=== PATIENT | female | born 1970 | race Caucasian/White ===

== ENCOUNTER 2016-08-21 13:20 | Emergency (ER) | payer OTHER ==
[2016-08-21] MEDS ORDERED: KETOROLAC 60 MG/2 ML VIAL IVP STA (14:23)
[2016-08-21] MEDS ORDERED: KETOROLAC 30 MG/ML VIAL ONE (14:37)
== END 2016-08-21 15:11 | disposition home or self-care (01) ==
DX: J06.9 Acute upper respiratory infection, unspecified (principal); B97.89 Other viral agents as the cause of diseases classified elsewhere; R07.89 Other chest pain; Z95.2 Presence of prosthetic heart valve; F17.200 Nicotine dependence, unspecified, uncomplicated

== ENCOUNTER 2016-12-16 11:26 | Emergency (ER) | payer OTHER ==
[2016-12-16] MEDS ORDERED: LIDOCAINE PATCH 5% TOP STA (12:06)
[2016-12-16] MEDS ORDERED: KETOROLAC 60 MG/2 ML VIAL IM STA (12:06)
[2016-12-16] MEDS ORDERED: CYCLOBENZAPRINE 10 MG TABLET PO STA (12:06)
--- NOTE | 2016-12-16 12:10 | ED Physician Documentation ---
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: Breast implants, Other Cardiovascular: Valve replacement HEENT: Tonsil/Adenoidectomy - Present Medications Home Medications: Ambulatory Orders Medication Instructions Recorded Confirmed Meloxicam [Mobic] 7.5 mg PO BID PRN #20 tablet 08/21/16 Cyclobenzaprine [Flexeril] 10 mg PO TID PRN #20 tablet 12/16/16 Lidocaine Patch 5% [Lidoderm Patch] 1 each TOP DAILY PRN #10 patch 12/16/16 - Allergies Allergies/Adverse Reactions: Allergies Allergy/AdvReac Type Severity Reaction Status Date / Time codeine Allergy Itching Verified 12/16/16 11:42 hydrocodone Allergy Unknown Verified 12/16/16 11:42 meperidine HCl * Allergy Unknown Verified 12/16/16 11:42 [From Demerol] methocarbamol Allergy Unknown Verified 12/16/16 11:42 oxycodone [Oxycodone] Allergy Itching Verified 12/16/16 11:42 propoxyphene napsylate * Allergy Itching Verified 12/16/16 11:42 [From Darvocet-N] anti nausea Allergy Unknown Uncoded 12/16/16 11:42 - Social History Does the pt smoke?: Yes Smoking Status: Current every day smoker Does the pt drink ETOH?: Yes Does the pt have substance abuse?: No - Immunizations Immunizations are current?: Yes - POLST Patient has POLST: No PD ED PE NORMAL - Vitals Vital signs reviewed: Yes - Cardiac Cardiac: RRR - Abdomen Abdomen: Soft, Non tender - Derm Derm: Normal color - Extremities Extremities: No deformity - Neuro Neuro: Alert and oriented X 3, No motor deficit, No sensory deficit, Other (hip flexion knee ext foot dorsi planta flexion and great toe ext 5/5 denies numbness or saddle anesthesia, no clonus, diff to elicit patellar DTR janak but pt states that is normal for her) Results - Vitals Vitals: Vital Signs - 24 hr 12/16/16 12/16/16 11:34 12:52 Temperature 36.5 C Heart Rate 71 76 Respiratory 14 Rate Blood Pressure 133/88 H 130/80 O2 Saturation 100 Oxygen O2 Source Room air Departure - Departure Disposition: Home, Self Care Clinical Impression: Back pain Qualifiers: Back pain location: low back pain Chronicity: acute Back pain laterality: bilateral Sciatica presence: without sciatica Qualified Code(s): M54.5 - Low back pain Condition: Good Instructions: ED Low Back Pain Injury Follow-Up: LANNY HERNANDEZ [Primary Care Provider] - Prescriptions: Cyclobenzaprine [Flexeril] 10 mg PO TID PRN #20 tablet PRN Reason: Spasms Lidocaine Patch 5% [Lidoderm Patch] 1 each TOP DAILY PRN #10 patch PRN Reason: Pain Comments: Continue your mobic or else can take advil for anti-inflammatory effect Also I have prescribed lidocaine patches and muscle relaxants and written a note for work Please have your PMD recheck your blood pressure - it was high today Forms: Activity restrictions Discharge Date/Time: 12/16/16 12:54
[2016-12-16] MEDS ORDERED: CYCLOBENZAPRINE 10 MG TABLET PO ONE (12:31)
[2016-12-16] MEDS ORDERED: KETOROLAC 60 MG/2 ML VIAL ONE (12:32)
[2016-12-16] MEDS ORDERED: LIDOCAINE PATCH 5% TOP ONE (12:32)
[2016-12-16 12:54] VITALS: BP 130/80
== END 2016-12-16 12:54 | disposition home or self-care (01) ==
LOC: ED 11:26
DX: M54.5 Low back pain (principal); R03.0 Elevated blood-pressure reading, without diagnosis of hypertension; F17.200 Nicotine dependence, unspecified, uncomplicated; Z95.2 Presence of prosthetic heart valve
CPT/HCPCS: 96372; 99283; A9270

== ENCOUNTER 2017-07-16 12:24 | Outpatient (CLI) | payer OTHER ==
--- NOTE | 2017-07-16 15:30 | MRI Report ---
EXAM: LEFT KNEE MRI WITHOUT CONTRAST EXAM DATE: 07/16/2017 01:24 PM. CLINICAL HISTORY: Prior lateral dislocation of the patella. Persistent pain and swelling. COMPARISON: Knee x-ray, 09/13/2007. TECHNIQUE: Multiplanar, multisequence T1-weighted and fluid-sensitive sequences of the knee without c ontrast. Other: None. FINDINGS: Bones: There is a small focus of marrow edema in the medial aspect of the medial femoral condyle. Sma ll medial compartment osteophytes.. Articular Cartilage: Moderate thinning of the hyaline cartilage of the medial compartment. Mild thinn ing of the lateral and patellofemoral compartment cartilage. Medial Meniscus: The medial meniscus is intact. Lateral Meniscus: The lateral meniscus is intact. Cruciate Ligaments: The anterior and posterior cruciate ligaments are intact. Collateral Ligaments: The medial and lateral collateral ligament appears slightly thickened, suggesti ng prior trauma. Tendons: The quadriceps, patellar, semimembranosus, and popliteus tendons are unremarkable. Musculature: No edema or fatty atrophy. Other: There is a moderate-sized joint effusion. There is thickening of the synovium in the suprapate llar pouch and in the medial and lateral recesses. No loose bodies. The medial and lateral retinacula are intact. The subcutaneous tissues and fat pads are unremarkable. IMPRESSION: 1. Mild medial compartment osteoarthritis. Minimal patellofemoral and lateral compartment cartilage e rosion. 2. Moderate-sized joint effusion with diffuse synovial thickening. The findings raise the possibility of a monoarticular presentation of an inflammatory arthropathy such as rheumatoid arthritis. 3. No evidence of patellar dislocation. 4. The menisci and ligaments appear unremarkable. [facility]CUL[facility]OLOG[facility] SECTION Referring Provider Line: [phone] SITE ID: [id number]
== END 2017-07-16 12:25 | disposition home or self-care (01) ==
LOC: DI 12:24
PROVIDERS: ATTEND Family Medicine
DX: M17.12 Unilateral primary osteoarthritis, left knee (principal); M25.462 Effusion, left knee

== ENCOUNTER 2017-07-28 08:27 | Emergency (ER) | payer OTHER ==
[2017-07-28 08:49] VITALS: BP 136/103
--- NOTE | 2017-07-28 09:44 | XRAY Report ---
EXAM: LEFT KNEE RADIOGRAPHY EXAM DATE: 07/28/2017 09:05 AM. CLINICAL HISTORY: Left knee injury. COMPARISON: None. TECHNIQUE: 3 views. FINDINGS: Bones: No fractures or bone lesions. Joints: Moderate joint effusion. Significant degenerative findings. Soft Tissues: Unremarkable. IMPRESSION: 1. No acute osseous abnormality. 2. Joint effusion. [facility] Referring Provider Line: [phone] SITE ID: [id number]
--- NOTE | 2017-07-28 11:06 | ED Physician Documentation ---
PD HPI LOWER EXT INJURY - Stated complaint Stated Complaint: KNEE PX - Chief complaint Chief Complaint: Ext Problem - History obtained from History obtained from: Patient - History of Present Illness PD HPI LOW EXT INJURY LOCATION: Left, Knee Type of injury: Twist Where injury occurred: Home Timing - onset: Today Timing - duration: Hours Timing - details: Abrupt onset, Still present Improved by: Rest, Immobilization Worsened by: Moving, Palpating Associated symptoms: Swelling Contributing factors: No: Anticoagulated Similar symptoms before: Diagnosis (patellar dislocation) Recently seen: Not recently seen - Additional information Additional information: 46-year-old female had a patellar dislocation about 3 months ago. She had been on some crutches she has had a joint effusion and she has been in to have a MRI done of the knee. She is continued to have problems with her knee the entire time. Today she twisted her knee wrong and has significant severe pain and swelling. She is not able to bear weight without severe pain. Review of Systems Constitutional: denies: Fever Eyes: denies: Decreased vision Ears: denies: Ear pain Nose: denies: Congestion Throat: denies: Sore throat Respiratory: denies: Cough GI: denies: Vomiting Skin: denies: Rash Musculoskeletal: reports: Extremity pain, Joint pain, Joint swelling, Pain with weight bearing. denies: Neck pain, Back pain Neurologic: denies: Generalized weakness, Focal weakness, Numbness PD PAST MEDICAL HISTORY - Past Medical History Past Medical History: Yes - Past Surgical History Past Surgical History: Yes Ortho: Other /[employer]: Breast implants, Other Cardiovascular: Valve replacement HEENT: Tonsil/Adenoidectomy - Present Medications Home Medications: Ambulatory Orders Medication Instructions Recorded Confirmed Meloxicam [Mobic] 7.5 mg PO BID PRN #20 tablet 08/21/16 Cyclobenzaprine [Flexeril] 10 mg PO TID PRN #20 tablet 12/16/16 Lidocaine Patch 5% [Lidoderm Patch] 1 each TOP DAILY PRN #10 patch 12/16/16 HYDROcod/ACETAM 5/325 [[place] 5/325] 1 - 2 ea PO Q6H PRN #15 tablet 07/28/17 - Allergies Allergies/Adverse Reactions: Allergies Allergy/AdvReac Type Severity Reaction Status Date / Time codeine Allergy Itching Verified 12/16/16 11:42 hydrocodone Allergy Unknown Verified 12/16/16 11:42 meperidine HCl * Allergy Unknown Verified 12/16/16 11:42 [From Demerol] methocarbamol Allergy Unknown Verified 12/16/16 11:42 oxycodone [Oxycodone] Allergy Itching Verified 12/16/16 11:42 propoxyphene napsylate * Allergy Itching Verified 12/16/16 11:42 [From Darvocet-N] anti nausea Allergy Unknown Uncoded 12/16/16 11:42 - Social History Does the pt smoke?: Yes Smoking Status: Current every day smoker Does the pt drink ETOH?: Yes Does the pt have substance abuse?: No - Immunizations Immunizations are current?: Yes - POLST Patient has POLST: No PD ED PE NORMAL - Vitals Vital signs reviewed: Yes (hypertensive) - General General: Alert and oriented X 3, Well developed/nourished, Other (appears to be in pain ) - HEENT HEENT: Atraumatic, PERRL, EOMI - Respiratory Respiratory: No respiratory distress - Derm Derm: Normal color, Warm and dry, No rash - Extremities Extremities: No deformity, No edema, Other (There is swelling and pain in the left knee with a palpable effusion. There is ligamentous laxity of the MCL compared to the right. distal n/v intact. 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 No acute osseous abnormality. 2. Joint effusion.), EMP read indepedently, See rad report Procedures - Splint (location) left knee Splint applied by: Tech Type of splint: Other (knee splint) Other: Patient tolerated well, No complications, Neurovascular intact, Good alignment PD MEDICAL DECISION MAKING - ED course Complexity details: reviewed results, re-evaluated patient, considered differential, d/w patient ED course: 46-year-old female with a left knee joint effusion has now sprained her knee and appears to have some laxity to the medial collateral ligament as well. She does have a joint effusion present there and this is not tapped today.She is placed into a knee immobilizer and given an injection of Toradol. She is able to take Vicodin with Benadryl. Departure - Departure Disposition: 01 Home, Self Care Clinical Impression: Left knee sprain Qualifiers: Encounter type: initial encounter Involved ligament of knee: medial collateral ligament Qualified Code(s): S83.412A - Sprain of medial collateral ligament of left knee, initial encounter Condition: Stable Instructions: ED Effusion Knee, ED Sprain Knee Follow-Up: [facility] [Provider Group] Prescriptions: HYDROcod/ACETAM 5/325 [[place] 5/325] 1 - 2 ea PO Q6H PRN #15 tablet PRN Reason: Pain Forms: Activity restrictions Discharge Date/Time: 07/28/17 12:08
[2017-07-28] MEDS ORDERED: KETOROLAC 60 MG/2 ML VIAL IM STA (11:20)
== END 2017-07-28 12:08 | disposition home or self-care (01) ==
LOC: ED 08:27
DX: S83.412A Sprain of medial collateral ligament of left knee, initial encounter (principal); X50.1XXA Overexertion from prolonged static or awkward postures, initial encounter; Y92.009 Unspecified place in unspecified non-institutional (private) residence as the place of occurrence of the external cause; F17.200 Nicotine dependence, unspecified, uncomplicated
CPT/HCPCS: 99283

== ENCOUNTER 2019-09-10 22:09 | Outpatient (CLI) | payer OTHER | END 2019-09-10 23:59 | disposition EMS.NT | LOC: EMS 22:09 | PROVIDERS: ATTEND Surgery | DX: R11.0 Nausea (principal); Z73.3 Stress, not elsewhere classified; R20.2 Paresthesia of skin; R63.0 Anorexia ==

== ENCOUNTER 2019-09-11 12:38 | Outpatient (CLI) | payer OTHER | END 2019-09-11 12:39 | disposition critical access hospital (66) | LOC: EMS 12:38 | PROVIDERS: ATTEND Surgery | DX: R11.2 Nausea with vomiting, unspecified (principal); R42 Dizziness and giddiness; R68.2 Dry mouth, unspecified | CPT/HCPCS: A0425; A0427 ==

== ENCOUNTER 2019-09-11 12:59 | Emergency (ER) | payer OTHER ==
--- NOTE | 2019-09-11 13:13 | ED Physician Documentation ---
History of Present Illness - Stated complaint Stated Complaint: DIZZY/AGITATED - History obtained from History obtained from: Patient, EMS - History of Present Illness Timing: Yesterday - Additonal information Additional information: 48-year-old female reports that she began using methamphetamine and crack on Wednesday afternoon and she remembers taking a last dose of this yesterday at about 1 PM and she felt at that time that there was something seriously wrong and she has not taken any since. She is here today with a chief complaint of vomiting and vomiting blood having dry heaves having anxiety and numbness. She indicates that she has never done methamphetamine previously and she is "scared" Review of Systems Constitutional: reports: Fatigue. denies: Fever, Chills, Myalgias Eyes: denies: Decreased vision Ears: denies: Ear pain Nose: denies: Rhinorrhea / runny nose, Congestion Throat: denies: Sore throat Cardiac: reports: Palpitations. denies: Chest pain / pressure Respiratory: reports: Dyspnea. denies: Cough GI: reports: Abdominal Pain, Nausea, Vomiting, Hematemesis. denies: Constipation, Diarrhea : denies: Dysuria, Frequency Skin: denies: Rash Musculoskeletal: denies: Neck pain, Back pain, Extremity pain Neurologic: reports: Numbness. 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 Cardiovascular: Valve replacement HEENT: Tonsil/Adenoidectomy - Present Medications Home Medications: Ambulatory Orders Medication Instructions Recorded Confirmed Meloxicam [Mobic] 7.5 mg PO BID PRN #20 tablet 08/21/16 Cyclobenzaprine [Flexeril] 10 mg PO TID PRN #20 tablet 12/16/16 Lidocaine Patch 5% [Lidoderm Patch] 1 each TOP DAILY PRN #10 patch 12/16/16 HYDROcod/ACETAM 5/325 [[place] 5/325] 1 - 2 ea PO Q6H PRN #15 tablet 07/28/17 - Allergies Allergies/Adverse Reactions: Allergies Allergy/AdvReac Type Severity Reaction Status Date / Time codeine Allergy Itching Verified 09/11/19 13:07 hydrocodone Allergy Unknown Verified 09/11/19 13:07 meperidine HCl * Allergy Unknown Verified 09/11/19 13:07 [From Demerol] methocarbamol Allergy Unknown Verified 09/11/19 13:07 oxycodone [Oxycodone] Allergy Itching Verified 09/11/19 13:07 propoxyphene napsylate * Allergy Itching Verified 09/11/19 13:07 [From Darvocet-N] anti nausea Allergy Unknown Uncoded 09/11/19 13:07 - Social History Does the pt smoke?: Yes Smoking Status: Current every day smoker Does the pt drink ETOH?: Yes Does the pt have substance abuse?: No - Immunizations Immunizations are current?: Yes - POLST Patient has POLST: No PD ED PE NORMAL - Vitals Vital signs reviewed: Yes - General General: Alert and oriented X 3, Well developed/nourished, Other (Wide-eyed anxious appearing female who is a bit tachypneic at rest) - HEENT HEENT: Atraumatic, PERRL, EOMI - Neck Neck: Supple, no meningeal sign, No bony TTP - Cardiac Cardiac: No murmur, Other (Tachycardic and regular at 120) - Respiratory Respiratory: Clear bilaterally, Other (Tachypneic at rest) - Abdomen Abdomen: Non tender - Back Back: No CVA TTP, No spinal TTP - Derm Derm: Normal color, Warm and dry, No rash - Extremities Extremities: No deformity, No edema, No calf tenderness / cord - Neuro Neuro: Alert and oriented X 3, research animal attendant 2-12 intact, No motor deficit, No sensory deficit, Normal speech Eye Opening: Spontaneous Motor: Obeys Commands Verbal: Oriented GCS Score: 15 - Psych Psych: Other (The patient is anxious but with a full range affect.) Results - Vitals Vitals: Vital Signs - 24 hr 09/11/19 13:07 Temperature 37.2 C Heart Rate 120 H Respiratory 24 Rate Blood Pressure 169/101 H O2 Saturation 100 Oxygen O2 Source Room air - EKG (time done) 1315 Rate: Rate (enter#) (106) Rhythm: Sinus tachycardia Intervals: RBBB (incomplete) Compare to prior EKG: Changed from prior EKG (SPT 08-21-2016 rate has increased) Computer interpretation: Agree with computer - Labs Labs: Laboratory Tests 09/11/19 09/11/19 09/11/19 13:25 13:25 14:06 WBC 8.3 RBC 4.56 Hgb 14.5 Hct 42.6 MCV 93.4 MCH 31.8 H MCHC 34.0 RDW 13.7 Plt Count 211 MPV 10.0 Neut # (Auto) 6.2 Lymph # (Auto) 1.4 L Mchenry # (Auto) 0.6 Eos # (Auto) 0.0 Baso # (Auto) 0.0 Absolute Nucleated RBC 0.00 Nucleated RBC % 0.0 Sodium 136 Potassium 3.9 Chloride 102 Carbon Dioxide 24 Anion Gap 10.0 BUN 9 Creatinine 0.7 Estimated GFR (MDRD) 89 Glucose 103 H Calcium 8.9 Total Bilirubin 0.8 AST 31 ALT 23 Alkaline Phosphatase 92 Total Protein 7.5 Albumin 4.2 Globulin 3.3 Albumin/Globulin Ratio 1.3 Lipase 27 Urine Color Urine Clarity Urine pH Ur Specific [place] Urine Protein Urine Glucose (UA) Urine Ketones Urine Occult Blood Urine Nitrite Urine Bilirubin Urine Urobilinogen Ur Leukocyte Esterase Ur Microscopic Review Urine Culture Comments Urine HCG, Qual Urine Opiates Screen NEGATIVE Ur Oxycodone Screen NEGATIVE Urine Methadone Screen NEGATIVE Ur Propoxyphene Screen NEGATIVE Ur Barbiturates Screen NEGATIVE Ur Tricyclics Screen NEGATIVE Ur Phencyclidine Scrn NEGATIVE Ur Amphetamine Screen POSITIVE H U Methamphetamines Scrn POSITIVE H U Benzodiazepines Scrn NEGATIVE Urine Cocaine Screen NEGATIVE U Cannabinoids Screen POSITIVE H Ethyl Alcohol < 5.0 09/11/19 14:06 WBC RBC Hgb Hct MCV MCH MCHC RDW Plt Count MPV Neut # (Auto) Lymph # (Auto) Mchenry # (Auto) Eos # (Auto) Baso # (Auto) Absolute Nucleated RBC Nucleated RBC % Sodium Potassium Chloride Carbon Dioxide Anion Gap BUN Creatinine Estimated GFR (MDRD) Glucose Calcium Total Bilirubin AST ALT Alkaline Phosphatase Total Protein Albumin Globulin Albumin/Globulin Ratio Lipase Urine Color YELLOW Urine Clarity CLEAR Urine pH 6.0 Ur Specific [place] 1.010 Urine Protein NEGATIVE Urine Glucose (UA) NEGATIVE Urine Ketones 40 H Urine Occult Blood NEGATIVE Urine Nitrite NEGATIVE Urine Bilirubin NEGATIVE Urine Urobilinogen 0.2 (NORMAL) Ur Leukocyte Esterase NEGATIVE Ur Microscopic Review NOT INDICATED Urine Culture Comments NOT INDICATED Urine HCG, Qual NEGATIVE Urine Opiates Screen Ur Oxycodone Screen Urine Methadone Screen Ur Propoxyphene Screen Ur Barbiturates Screen Ur Tricyclics Screen Ur Phencyclidine Scrn Ur Amphetamine Screen U Methamphetamines Scrn U Benzodiazepines Scrn Urine Cocaine Screen U Cannabinoids Screen Ethyl Alcohol Procedures - IVC sono (time) 1340 Bedside IVC sono: IVC measures (cm) (1.12), Dehydration (est 1+ liter deficit) PD MEDICAL DECISION MAKING - ED course Complexity details: reviewed old records, reviewed results, re-evaluated patient, considered differential, d/w patient ED course: 48-year-old female who is feeling quite anxious after consuming methamphetamine and cocaine. She is administered Ativan intravenously as well as saline and zofran. She gives further history that she has not taken her Lexapro for the past 4 days. Her level of anxiety 24 hours after meth and cocaine seems long for this and I considered lexapro withdrawal as a likely reason for her symptoms and we have given her 20mg of lexapro. After administration of the Lexapro the patient is able to fall asleep. She wakes up feeling much improved. She has recollection that she did not take any cocaine that this was methamphetamine. Departure - Departure Disposition: 01 Home, Self Care Clinical Impression: Dehydration Antidepressant discontinuation syndrome Qualifiers: Encounter type: initial encounter Qualified Code(s): T43.205A - Adverse effect of unspecified antidepressants, initial encounter Condition: Stable Instructions: ED Dehydration, Escitalopram tablets, SSRIs Follow-Up: Alonso Love ARNP [Primary Care Provider] - Comments: Resume your Lexapro at the previously prescribed dose. The symptoms you had today are likely related to not having her Lexapro for 4 days. The symptoms can be pretty profound and concerning. If you ever need to get off of this medication plan to have a slow taper.
[2019-09-11] MEDS: LORazepam 2 MG/ML VIAL IVP STA (13:29)
[2019-09-11] MEDS: ONDANSETRON 4 MG/2 ML VIAL IVP STA (13:29)
[2019-09-11] MEDS: SODIUM CHLORIDE 0.9% 1,000 ML IV ONE (13:29)
[2019-09-11 13:37] LABS: BASOPHILS % (AUTO) 0.5 %; EOSINOPHILS % (AUTO) 0.5 %; HGB - HEMOGLOBIN 14.5 g/dL (12.0-16.0); LYMPHOCYTES # (AUTO) 1.4 10^3/uL (1.5-3.5); LYMPHOCYTES % (AUTO) 17.3 %; MEAN CORPUSCULAR HEMOGLOBIN 31.8 pg (27.0-31.0); MEAN CORPUSCULAR VOLUME 93.4 fL (81.0-99.0); MONOCYTES # (AUTO) 0.6 10^3/uL (0.0-1.0); MONOCYTES % (AUTO) 7.5 %; NEUTROPHILS # (AUTO) 6.2 10^3/uL (1.5-6.6); NEUTROPHILS % (AUTO) 73.8 %; PLT - PLATELET COUNT 211 10^3/uL (130-450); RED BLOOD COUNT 4.56 10^6/uL (4.20-5.40); RED CELL DISTRIBUTION WIDTH 13.7 % (12.0-15.0); WHITE BLOOD COUNT 8.3 x10^3/uL (4.8-10.8)
[2019-09-11 13:51] LABS: ALBUMIN 4.2 g/dL (3.2-5.5); ALBUMIN/GLOBULIN RATIO 1.3 (1.0-2.2); ALKALINE PHOSPHATASE 92 IU/L (42-121); ALT ALANINE AMINOTRANSFERASE 23 IU/L (10-60); AST ASPARTATE AMINOTRANSFERASE 31 IU/L (10-42); BILIRUBIN,TOTAL 0.8 mg/dL (0.2-1.0); BUN - BLOOD UREA NITROGEN 9 mg/dL (6-20); CALCIUM 8.9 mg/dL (8.5-10.3); CARBON DIOXIDE - CO2 24 mmol/L (21-32); CHLORIDE 102 mmol/L (101-111); CREATININE 0.7 mg/dL (0.4-1.0); GLUCOSE 103 mg/dL (70-100); LIPASE 27 U/L (22-51); SODIUM 136 mmol/L (135-145); TOTAL PROTEIN 7.5 g/dL (6.7-8.2)
[2019-09-11 14:11] LABS: MUDS CUTOFF CONCENTRATIONS CUTOFF CONC BELOW:
[2019-09-11 14:17] LABS: BILIRUBIN,URINE NEGATIVE (NEGATIVE); CLARITY,URINE CLEAR (CLEAR); GLUCOSE, URINE (UA) NEGATIVE (NEGATIVE); KETONES,URINE (UA) 40 mg/dL (NEGATIVE); LEUKOCYTE ESTERASE, URINE NEGATIVE (NEGATIVE); NITRITE,URINE NEGATIVE (NEGATIVE); OCCULT BLOOD,URINE NEGATIVE (NEGATIVE); PROTEIN,URINE NEGATIVE (NEGATIVE); UROBILINOGEN,URINE 0.2 (NORMAL) E.U./dL (NORMAL)
[2019-09-11 14:18] LABS: HCG UR QUAL NEGATIVE
[2019-09-11 14:28] LABS: AMPHETAMINE SCREEN,URINE POSITIVE (NEGATIVE); BENZODIAZEPINES SCREEN, URINE NEGATIVE (NEGATIVE); COCAINE SCREEN URINE NEGATIVE (NEGATIVE); METHADONE SCREEN, URINE NEGATIVE (NEGATIVE); METHAMPHETAMINES SCREEN, URINE POSITIVE (NEGATIVE); OPIATE SCREEN, URINE NEGATIVE (NEGATIVE); OXYCODONE SCREEN, URINE NEGATIVE (NEGATIVE); PROPOXYPHENE SCREEN, URINE NEGATIVE (NEGATIVE); TRICYCLIC ANTIDEPRESSANT,URINE NEGATIVE (NEGATIVE)
[2019-09-11] MEDS: ESCITALOPRAM 10 MG TABLET PO STA (14:33)
[2019-09-11] MEDS: PROMETHAZINE INJ 25 MG in SODIUM CHLORIDE 0.9% 50 ML IV STA (14:52)
[2019-09-11 15:44] VITALS: BP 143/103
== END 2019-09-11 16:07 | disposition home or self-care (01) ==
LOC: EDUNIT# → ED 12:59
DX: F41.9 Anxiety disorder, unspecified (principal); T43.205A Adverse effect of unspecified antidepressants, initial encounter; E86.0 Dehydration; F17.200 Nicotine dependence, unspecified, uncomplicated
CPT/HCPCS: 36415; 80053; 80306; 80320; 81001; 81003; 81025; 83690; 85025; 87086; 93005; 96365; 96375; 99284

== ENCOUNTER 2020-01-08 12:35 | Emergency (ER) | payer OTHER ==
[2020-01-08] MEDS ORDERED: LIDOCAINE 1% 2 ML VIAL MC ONE (13:06)
[2020-01-08] MEDS ORDERED: cefTRIAXone 250 MG VIAL IM STA (13:06)
[2020-01-08] MEDS ORDERED: AZITHROMYCIN 250 MG TABLET PO STA (13:06)
[2020-01-08] MEDS ORDERED: metroNIDAZOLE 250 MG TABLET PO STA (13:06)
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
[2020-01-08 14:05] VITALS: BP 185/132
[2020-01-08 14:35] LABS: GLUCOSE, URINE (UA) NEGATIVE (NEGATIVE); KETONES,URINE (UA) 15 mg/dL (NEGATIVE); LEUKOCYTE ESTERASE, URINE NEGATIVE (NEGATIVE); NITRITE,URINE NEGATIVE (NEGATIVE); OCCULT BLOOD,URINE NEGATIVE (NEGATIVE); PH,URINE 5.5 PH (5.0-7.5); PROTEIN,URINE NEGATIVE (NEGATIVE); UROBILINOGEN,URINE 0.2 (NORMAL) E.U./dL (NORMAL)
[2020-01-08 14:38] LABS: HCG UR QUAL NEGATIVE
[2020-01-08 14:42] LABS: BILIRUBIN,URINE NEGATIVE (NEGATIVE); ICTOTEST,URINE NEGATIVE
[2020-01-08 14:43] LABS: CLARITY,URINE CLEAR (CLEAR)
[2020-01-08] MEDS ORDERED: ULIPRISTAL ACETATE 30 MG TABLET PO STA (14:47)
[2020-01-08 15:11] LABS: MUDS CUTOFF CONCENTRATIONS CUTOFF CONC BELOW:
[2020-01-08] MEDS ORDERED: ONDANSETRON ODT 4 MG TABLET TL STA (15:30)
[2020-01-08 15:32] LABS: COCAINE SCREEN URINE NEGATIVE (NEGATIVE)
[2020-01-08 15:33] LABS: AMPHETAMINE SCREEN,URINE NEGATIVE (NEGATIVE); BENZODIAZEPINES SCREEN, URINE NEGATIVE (NEGATIVE); METHADONE SCREEN, URINE NEGATIVE (NEGATIVE); METHAMPHETAMINES SCREEN, URINE NEGATIVE (NEGATIVE); OPIATE SCREEN, URINE NEGATIVE (NEGATIVE); OXYCODONE SCREEN, URINE NEGATIVE (NEGATIVE); PROPOXYPHENE SCREEN, URINE NEGATIVE (NEGATIVE); TRICYCLIC ANTIDEPRESSANT,URINE NEGATIVE (NEGATIVE)
[2020-01-08 22:49] LABS: TRICHOMONAS VAGINALIS DNA NEGATIVE (NEGATIVE)
[2020-01-09 10:45] LABS: HIV AG/AB 4TH GEN NON-REACTIVE (NON-REACTIVE)
[2020-01-09 15:27] LABS: HEPATITIS C ANTIBODY NON-REACTIVE (NON-REACTIVE)
== END 2020-01-08 16:48 | disposition home or self-care (01) ==
LOC: ED 12:35
DX: T76.21XA Adult sexual abuse, suspected, initial encounter (principal); I10 Essential (primary) hypertension; F17.200 Nicotine dependence, unspecified, uncomplicated
CPT/HCPCS: 0133C; 36415; 80306; 81003; 81025; 86317; 86803; 87389; 87491; 87591; 87661; 96372; A9270; Q0162; 81001; 87086

== ENCOUNTER 2020-06-30 15:41 | Emergency (ER) | payer OTHER ==
--- NOTE | 2020-06-30 15:59 | ED Physician Documentation ---
PD HPI URI - Stated complaint Stated Complaint: CP,SOA,ARMS TINGLE - Chief complaint Chief Complaint: Cardiac - History obtained from History obtained from: Patient - History of Present Illness Timing - onset: How many days ago (3-4) Timing duration: Days (3-4) Timing details: Gradual onset, Still present Associated symptoms: Nasal congestion, Sinus pain (left frontal/behind eye area locally.), Productive cough Contributing factors: COPD / asthma. No: Sick contact, Travel, Immunocompromised Improves by: MDI/nebulizer (albuterol MDI without spacer at home.) Worsened by: Activity Similar symptoms before: Diagnosis (prior URIS with exac asthma, and has had sinusitis in the past as well.) Recently seen: Not recently seen Review of Systems Constitutional: denies: Fever, Chills Nose: reports: Congestion, Sinus pressure / pain (left sided). denies: Rhinorrhea / runny nose Throat: denies: Sore throat Cardiac: reports: Chest pain / pressure (sternal area with coughing and breathing.) Respiratory: reports: Dyspnea, Cough, Wheezing. denies: Hemoptysis GI: reports: Nausea. 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 : None HEENT: None Psych: Depression, Anxiety Musculoskeletal: None Derm: None - Past Surgical History Past Surgical History: Yes Ortho: Other /ACCOUNT DEVELOPER: Breast implants, Other Cardiovascular: Valve replacement HEENT: Tonsil/Adenoidectomy - Present Medications Home Medications: Ambulatory Orders Medication Instructions Recorded Confirmed Cyclobenzaprine [Flexeril] 10 mg PO TID PRN #20 tablet 12/16/16 06/30/20 Lidocaine Patch 5% [Lidoderm Patch] 1 each TOP DAILY PRN #10 patch 12/16/16 06/30/20 Escitalopram Oxalate [Lexapro] 20 mg PO DAILY 01/08/20 06/30/20 QUEtiapine [SEROquel] 25 mg ORAL DAILY PM 01/08/20 06/30/20 Albuterol 2.5 mg INH Q4H PRN #30 neb 06/30/20 Albuterol Sulfate [Proair Hfa 1 - 2 puffs INH Q4H PRN #1 inhaler 06/30/20 Inhaler] Benzonatate [Tessalon] 100 mg PO TID PRN #20 cap 06/30/20 Doxycycline Monohydrate 150 mg PO BID #14 cap 06/30/20 Nebulizer Accessories [Wing Tip 1 each MC QID #1 each 06/30/20 Tubing] Nebulizer [Truneb Nebulizer] 1 each MC QID #1 each 06/30/20 clonazePAM [Clonazepam] 0.5 mg PO DAILY PRN 06/30/20 06/30/20 dexAMETHasone [Decadron] 4 mg PO DAILY #7 tab 06/30/20 - Allergies Allergies/Adverse Reactions: Allergies Allergy/AdvReac Type Severity Reaction Status Date / Time codeine Allergy Itching Verified 06/30/20 15:44 hydrocodone Allergy Unknown Verified 06/30/20 15:44 meperidine HCl * Allergy Unknown Verified 06/30/20 15:44 [From Demerol] methocarbamol Allergy Unknown Verified 06/30/20 15:44 oxycodone [Oxycodone] Allergy Itching Verified 06/30/20 15:44 propoxyphene napsylate * Allergy Itching Verified 06/30/20 15:44 [From Darvocet-N] anti nausea Allergy Unknown Uncoded 01/08/20 12:49 - Social History Does the pt smoke?: Yes Smoking Status: Current every day smoker Does the pt drink ETOH?: Yes Does the pt have substance abuse?: No - Immunizations Immunizations are current?: Yes - POLST Patient has POLST: No PD ED PE NORMAL - Vitals Vital signs reviewed: Yes - General General: Alert and oriented X 3, Well developed/nourished - HEENT HEENT: PERRL (no discharge), Ears normal, Pharynx benign, Other (some tenderness left frontal area sinus. ) - Neck Neck: Supple, no meningeal sign, No adenopathy - Cardiac Cardiac: RRR, No murmur - Respiratory Respiratory: No: Clear bilaterally (no coarse sounds but has diffuse exp wheezing. ) - Abdomen Abdomen: Soft, Non tender - Derm Derm: Normal color, Warm and dry - Extremities Extremities: No edema, No calf tenderness / cord - Neuro Neuro: Alert and oriented X 3, No motor deficit, Normal speech Results - Vitals Vitals: Vital Signs - 24 hr 06/30/20 06/30/20 06/30/20 15:44 16:05 16:38 Temperature 37.2 C Heart Rate 78 84 73 Respiratory 20 18 15 Rate Blood Pressure 156/118 H 141/102 H O2 Saturation 100 99 06/30/20 06/30/20 16:39 18:00 Temperature Heart Rate 74 80 Respiratory 15 18 Rate Blood Pressure 163/101 H 165/96 H O2 Saturation 98 96 Oxygen O2 Source Room air - EKG (time done) 15:47 Rate: Rate (enter#) (78) Rhythm: NSR [place]: Normal Intervals: Normal PA QRS: Normal Ischemia: Normal ST segments. No: ST elevation c/w ischemia, ST depression - Labs Labs: Laboratory Tests 06/30/20 06/30/20 06/30/20 15:55 15:55 15:55 WBC 7.1 RBC 4.90 Hgb 15.5 Hct 46.3 MCV 94.5 MCH 31.6 H MCHC 33.5 RDW 12.3 Plt Count 230 MPV 10.0 Neut # (Auto) 4.0 Lymph # (Auto) 2.4 [place] # (Auto) 0.4 Eos # (Auto) 0.2 Baso # (Auto) 0.1 Absolute Nucleated RBC 0.00 Nucleated RBC % 0.0 Sodium 137 Potassium 3.7 Chloride 101 Carbon Dioxide 23 Anion Gap 13.0 BUN 17 Creatinine 0.8 Estimated GFR (MDRD) 76 L Glucose 101 H Calcium 9.8 Total Bilirubin 0.5 AST 23 ALT 24 Alkaline Phosphatase 92 Troponin I High Sens 2.8 Total Protein 7.8 Albumin 4.7 Globulin 3.1 Albumin/Globulin Ratio 1.5 Lipase 32 - Rads (name of study) chest xray Radiology: Prelim report reviewed (no infiltrates), See rad report PD MEDICAL DECISION MAKING - ED course Complexity details: reviewed results, considered differential (feeling much better with neb and with toradol. SHe declines opioid pain meds. DOes not sound cardiac, more pain with cough and breathing. will eval for pneumonia with CXR.), d/w patient Departure - Departure Disposition: 01 Home, Self Care Clinical Impression: Bronchitis Acute sinusitis Qualifiers: Sinusitis location: sphenoidal Recurrence: non-recurrent Qualified Code(s): J01 .30 - Acute sphenoidal sinusitis, unspecified Upper respiratory infection Qualifiers: URI type: unspecified URI Qualified Code(s): J06.9 - Acute upper respiratory infection, unspecified Exacerbation of asthma Qualifiers: Asthma severity: mild Asthma persistence: intermittent Qualified Code(s): J45.21 - Mild intermittent asthma with (acute) exacerbation Condition: Stable Record reviewed to determine appropriate education?: Yes Instructions: ED Bronchitis Asthmatic, ED Sinusitis Abx Tx Prescriptions: Albuterol 2.5 mg INH Q4H PRN #30 neb PRN Reason: Wheezing dexAMETHasone [Decadron] 4 mg PO DAILY #7 tab Doxycycline Monohydrate 150 mg PO BID #14 cap Albuterol Sulfate [Proair Hfa Inhaler] 1 - 2 puffs INH Q4H PRN #1 inhaler PRN Reason: Shortness Of Air/Wheezing Benzonatate [Tessalon] 100 mg PO TID PRN #20 cap PRN Reason: Cough Nebulizer [Truneb Nebulizer] 1 each MC QID #1 each Nebulizer Accessories [Wing Tip Tubing] 1 each MC QID #1 each Comments: Use your albuterol inhaler 3 to 4 puffs with the spacer or the nebulizer if you are able to get it 4 times a day regularly for the next several days to a week and extra times if needed for wheezing. After that resume as needed basis. Use Decadron steroid for inflammation of the airways to improve breathing and reduce cough. Add Tessalon if needed for cough. Doxycycline antibiotic twice daily for a week. Tylenol if needed for pains. Continue your other usual medicines. Recheck if not improving well over the next several days and resolved by 5 to 7 days. Your Covid test should result in the next couple of days and the results should be available through the patient portal for results. We do call positive results. Discharge Date/Time: 06/30/20 18:04
[2020-06-30 16:02] LABS: BASOPHILS # (AUTO) 0.1 10^3/uL (0.0-0.1); BASOPHILS % (AUTO) 0.8 %; EOSINOPHILS # (AUTO) 0.2 10^3/uL (0.0-0.7); EOSINOPHILS % (AUTO) 2.5 %; HGB - HEMOGLOBIN 15.5 g/dL (12.0-16.0); LYMPHOCYTES # (AUTO) 2.4 10^3/uL (1.5-3.5); LYMPHOCYTES % (AUTO) 34.2 %; MEAN CORPUSCULAR HEMOGLOBIN 31.6 pg (27.0-31.0); MEAN CORPUSCULAR HGB CONC 33.5 g/dL (32.0-36.0); MEAN CORPUSCULAR VOLUME 94.5 fL (81.0-99.0); MONOCYTES # (AUTO) 0.4 10^3/uL (0.0-1.0); MONOCYTES % (AUTO) 6.2 %; NEUTROPHILS % (AUTO) 55.9 %; PLT - PLATELET COUNT 230 10^3/uL (130-450); RED CELL DISTRIBUTION WIDTH 12.3 % (12.0-15.0); WHITE BLOOD COUNT 7.1 x10^3/uL (4.8-10.8)
--- NOTE | 2020-06-30 16:16 | XRAY Report ---
PROCEDURE: Chest 1 View X-Ray INDICATIONS: Chest Pain TECHNIQUE: One view of the chest was acquired. COMPARISON: 08/31/2016 FINDINGS: Surgical changes and devices: None. Lungs and pleura: No pleural effusions or pneumothorax. Lungs are clear. Mediastinum: Mediastinal contours appear normal. Heart size is normal. Bones and chest wall: No suspicious bony lesions. Mild degenerative changes are seen. Overlying sof t tissues appear unremarkable. IMPRESSION: Portable chest within normal limits for age. Reviewed by: Travis Watts MD on 06/30/2020 3:15 PM [place] Approved by: Travis Watts MD on 06/30/2020 3:15 PM [facility] Station ID: [id number]
[2020-06-30] MEDS ORDERED: ALBUTEROL 1 PUFF INH STA (16:20)
[2020-06-30] MEDS ORDERED: BENZONATATE 100 MG CAPSULE PO STA (16:23)
[2020-06-30] MEDS ORDERED: DEXAMETHASONE 10 MG/ML VIAL IVP STA (16:23)
[2020-06-30] MEDS ORDERED: KETOROLAC 30 MG/ML VIAL IVP STA (16:23)
[2020-06-30 16:24] LABS: ALBUMIN 4.7 g/dL (3.2-5.5); ALBUMIN/GLOBULIN RATIO 1.5 (1.0-2.2); BILIRUBIN,TOTAL 0.5 mg/dL (0.2-1.0); CALCIUM 9.8 mg/dL (8.5-10.3); CREATININE 0.8 mg/dL (0.4-1.0); TOTAL PROTEIN 7.8 g/dL (6.7-8.2)
[2020-06-30] MEDS ORDERED: DOXYCYCLINE 100 MG TABLET PO STA (17:47)
[2020-06-30 18:04] VITALS: BP 165/96
== END 2020-06-30 18:04 | disposition home or self-care (01) ==
LOC: ED 15:41
DX: J40 Bronchitis, not specified as acute or chronic (principal); J01.30 Acute sphenoidal sinusitis, unspecified; J06.9 Acute upper respiratory infection, unspecified; J45.21 Mild intermittent asthma with (acute) exacerbation; F17.200 Nicotine dependence, unspecified, uncomplicated; Z20.822 Contact with and (suspected) exposure to COVID-19
CPT/HCPCS: 36415; 71045; 80053; 83690; 84484; 85025; 87635; 93005; 94640; 96374; 96375; 99283; 99284; A9270

== ENCOUNTER 2020-10-18 15:44 | Emergency (ER) | payer OTHER ==
--- NOTE | 2020-10-18 16:46 | XRAY Report ---
PROCEDURE: Wrist 4 View LT INDICATIONS: Trauma TECHNIQUE: 4 views of the wrist were acquired. COMPARISON: None FINDINGS: Bones: No fractures or dislocations. No suspicious bony lesions. Scaphoid view: Scaphoid is intact. Soft tissues: No suspicious soft tissue calcifications. IMPRESSION: No fracture. No osseous lesion. If there are persistent symptoms or continued clinical concern for pa thology, then repeat plain film radiographs (7-10 days) or advanced imaging (CT, MR, bone scan) shoul d be considered for further evaluation. Reviewed by: Rashida Kim MD, PhD on 10/18/2020 4:45 PM PDT Approved by: Rashida Kim MD, PhD on 10/18/2020 4:45 PM PDT Station ID: [id number]
--- OUTSIDE RECORDS SUMMARY | 2020-10-18 16:47 | EXTERNAL MEDICAL SUMMARY RPT | Continuity of Care Document ---
:1970 Demographics Phone Unavailable Preferred Language Unknown Marital Status Unknown Mosque Affiliation Unknown Race Unknown Ethnic Group Unknown Author Organization [facility] Address [address] [place] [address] Phone Allergies Encounters Medications Problems Results
--- NOTE | 2020-10-18 17:01 | ED Physician Documentation ---
PD HPI UPPER EXT INJURY - Stated complaint Stated Complaint: LT ARM INJ - Chief complaint Chief Complaint: Ext Problem - History obtained from History obtained from: Patient - History of Present Illness Location: Left (Last night she slipped and her left wrist was between couch cushions and it got twisted and she heard a pop. No other injuries. 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 : None HEENT: None Psych: Anxiety, Panic attacks, Post traumatic stress disorder Musculoskeletal: None Derm: None - Past Surgical History Past Surgical History: Yes Ortho: Other /TREATING AND PUMPING SUPERVISOR: section, Breast implants, Other Cardiovascular: Other HEENT: Tonsil/Adenoidectomy - Present Medications Home Medications: Ambulatory Orders Medication Instructions Recorded Confirmed Cyclobenzaprine [Flexeril] 10 mg PO TID PRN #20 tablet 12/16/16 06/30/20 Lidocaine Patch 5% [Lidoderm Patch] 1 each TOP DAILY PRN #10 patch 12/16/16 06/30/20 Escitalopram Oxalate [Lexapro] 20 mg PO DAILY 01/08/20 06/30/20 QUEtiapine [SEROquel] 25 mg ORAL DAILY PM 01/08/20 06/30/20 Albuterol 2.5 mg INH Q4H PRN #30 neb 06/30/20 Albuterol Sulfate [Proair Hfa 1 - 2 puffs INH Q4H PRN #1 inhaler 06/30/20 Inhaler] Benzonatate [Tessalon] 100 mg PO TID PRN #20 cap 06/30/20 Doxycycline Monohydrate 150 mg PO BID #14 cap 06/30/20 Nebulizer Accessories [Wing Tip 1 each MC QID #1 each 06/30/20 Tubing] Nebulizer [Truneb Nebulizer] 1 each MC QID #1 each 06/30/20 clonazePAM [Clonazepam] 0.5 mg PO DAILY PRN 06/30/20 06/30/20 dexAMETHasone [Decadron] 4 mg PO DAILY #7 tab 06/30/20 - Allergies Allergies/Adverse Reactions: Allergies Allergy/AdvReac Type Severity Reaction Status Date / Time codeine Allergy Itching Verified 10/18/20 15:59 hydrocodone Allergy Unknown Verified 10/18/20 15:59 meperidine HCl * Allergy Unknown Verified 10/18/20 15:59 [From Demerol] methocarbamol Allergy Unknown Verified 10/18/20 15:59 oxycodone [Oxycodone] Allergy Itching Verified 10/18/20 15:59 propoxyphene napsylate * Allergy Itching Verified 10/18/20 15:59 [From Darvocet-N] anti nausea Allergy Unknown Uncoded 10/18/20 15:59 - Social History Does the pt smoke?: Yes Smoking Status: Current every day smoker Does the pt drink ETOH?: Yes Does the pt have substance abuse?: No Substance Use and Type: Marijuana - Immunizations Immunizations are current?: Yes - POLST Patient has POLST: No PD ED PE NORMAL - Vitals Vital signs reviewed: Yes - General General: Alert and oriented X 3, No acute distress - HEENT HEENT: PERRL, EOMI - Neck Neck: No bony TTP - Extremities Extremities: Other (Left wrist is nontender but she has significant pain especially with extension. There is no tenderness over the scaphoid or pain with axial loading of the left thumb.) - Neuro Neuro: Alert and oriented X 3, Normal speech Results - Vitals Vitals: Vital Signs - 24 hr 10/18/20 15:59 Temperature 36.9 C Heart Rate 75 Respiratory 16 Rate Blood Pressure 148/110 H O2 Saturation 100 Oxygen O2 Source Room air - Rads (name of study) 4 view x-ray left wrist Radiology: EMP read contemporaneously (Normal) Departure - Departure Disposition: 01 Home, Self Care Clinical Impression: Left wrist sprain Qualifiers: Encounter type: initial encounter Qualified Code(s): S63.502A - Unspecified sprain of left wrist, initial encounter Condition: Good Record reviewed to determine appropriate education?: Yes Instructions: ED Splint Care BAL Perez Sprain Wrist Comments: Take an anti-inflammatory such as ibuprofen as needed for the pain. Return for new or worsening symptoms. You can wear the splint as needed for comfort but you do not have to wear it all the time. If not improving in a week recheck with your doctor for reevaluation and potential repeat x-rays.
[2020-10-18 17:18] VITALS: BP 151/101
== END 2020-10-18 17:19 | disposition home or self-care (01) ==
LOC: ED 15:44
DX: S63.502A Unspecified sprain of left wrist, initial encounter (principal); X50.1XXA Overexertion from prolonged static or awkward postures, initial encounter; Y93.89 Activity, other specified; I10 Essential (primary) hypertension; F17.200 Nicotine dependence, unspecified, uncomplicated
CPT/HCPCS: 99282; 99283

== ENCOUNTER 2021-05-05 12:51 | Outpatient (CLI) | payer OTHER | END 2021-05-05 12:52 | disposition EMS.NT | LOC: EMS 12:51 | DX: F41.9 Anxiety disorder, unspecified (principal); M25.422 Effusion, left elbow ==

== ENCOUNTER 2021-08-05 08:00 | Outpatient (CLI) | payer OTHER ==
--- NOTE | 2021-08-06 08:19 | XRAY Report ---
PROCEDURE: Chest 2 View X-Ray INDICATIONS: COUGH TECHNIQUE: 2 view(s) of the chest. COMPARISON: Prior studies dating back to August 21, 2016. FINDINGS: SUPPORT DEVICES: None. LUNGS/PLEURA: No focal consolidation, pleural effusion or space-occupying pneumothorax. MEDIASTINUM: Presumed prominence of the pericardial fat causing tenting of the cardiac silhouette, un changed dating back to prior studies. The cardiac mediastinal silhouette is otherwise unremarkable. BONES/SOFT TISSUES: No acute abnormality. IMPRESSION: 1.No acute cardiopulmonary abnormality. Reviewed by: Don Lawler MD on 08/06/2021 8:17 AM PDT Approved by: Don Lawler MD on 08/06/2021 8:17 AM PDT Station ID: [id number]
--- NOTE | 2021-08-06 08:19 | XRAY Report ---
PROCEDURE: Elbow 2 View LT INDICATIONS: L ELBOW PX TECHNIQUE: 2 views of the elbow were acquired. COMPARISON: None. FINDINGS: BONES/JOINT: No acute, displaced fracture or dislocation. No appreciable joint effusion. SOFT TISSUES: No focal abnormality. IMPRESSION: 1.No acute osseous abnormality of the elbow. Reviewed by: Don Lawler MD on 08/06/2021 8:18 AM PDT Approved by: Don Lawler MD on 08/06/2021 8:18 AM PDT Station ID: [id number]
== END 2021-08-05 23:59 | disposition home or self-care (01) ==
LOC: DI.N 08:00
PROVIDERS: ATTEND Family Medicine
DX: R05.9 Cough, unspecified (principal); M25.522 Pain in left elbow

== ENCOUNTER 2021-10-08 08:14 | Outpatient (CLI) | payer OTHER | END 2021-10-08 08:15 | disposition critical access hospital (66) | LOC: EMS 08:14 | DX: R07.9 Chest pain, unspecified (principal); M79.622 Pain in left upper arm; R42 Dizziness and giddiness; R11.0 Nausea | CPT/HCPCS: A0425; A0427 ==

== ENCOUNTER 2021-10-08 08:33 | Emergency (ER) | payer OTHER ==
--- OUTSIDE RECORDS SUMMARY | 2021-10-08 08:47 | EXTERNAL MEDICAL SUMMARY RPT | Continuity of Care Document ---
:1970 Author Organization [facility] Address [address] [place] [address] Phone Care Team Providers Name Role Phone MD Unavailable Unavailable Allergies No information. Encounters No information. Medications date description facility 20210805 escitalopram oxalate All 20210805 fluticasone propion-salmeterol All 20210805 quetiapine All Problems date description facility 20210805 Unspecified mood [affective] disorder All 20210805 Unspecified episodic mood disorder All 20210805 Pain in left elbow All 20210805 Pain in joint involving upper arm All 20210805 Pain in elbow All 20210805 Other specified cough All 20210805 Other asthma All 20210805 Mood disorder All 20210805 ELBOW TWO VIEWS All 20210805 Cough All 20210805 CHEST 2 VIEW All 20210805 Asthma, unspecified All 20210805 Asthma All Results No information. Vital Signs date measurement value source 20210805 weight_standard 214 lb 20210805 weight_metric 97.07 kg 20210805 temperature_standard 98.2 F 20210805 temperature_metric 36.78 C 20210805 respiration_rate 16 /min 20210805 height_standard 70 in 20210805 height_metric 177.8 cm 20210805 heart_rate 68 /min 20210805 BP_systolic 176 mm[Hg] 20210805 BP_diastolic 93 mm[Hg] 20210805 BMI 30.82 kg/m2
--- NOTE | 2021-10-08 08:48 | ED Physician Documentation ---
PD HPI CHEST PAIN - Stated complaint Stated Complaint: CP - Chief complaint Chief Complaint: Cardiac - Additional information Additional information: Patient is 50-year-old female presenting to the emergency department with chest pain, left arm numbness and speech difficulties. Past medical significant for hypertension, obesity, smoking, asthma, anxiety and PTSD. Reports symptoms began approximately 12 hours ago. Primarily left-sided chest pain radiating into the left shoulder with left arm numbness. Reports is having difficulty forming words and articulating her thoughts. Denies similar symptoms in the past. Denies any facial droop, or weakness on either side of the body however reports prominent global numbness to her left arm. Review of Systems Ten Systems: 10 systems reviewed and negative Constitutional: denies: Fever Eyes: denies: Loss of vision Ears: denies: Loss of hearing Nose: denies: Rhinorrhea / runny nose Throat: denies: Dental pain / toothache Cardiac: reports: Chest pain / pressure. denies: Palpitations, Pedal edema, Calf pain, Reviewed and negative, Other Respiratory: denies: Dyspnea GI: denies: Abdominal Pain, Nausea, Vomiting, Diarrhea : denies: Dysuria Skin: denies: Rash Musculoskeletal: denies: Neck pain Neurologic: reports: Numbness, Difficulty speaking. 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 : None HEENT: None Psych: Anxiety, Panic attacks, Post traumatic stress disorder Musculoskeletal: None Derm: None - Past Surgical History Past Surgical History: Yes Ortho: Other /ELECTRICAL MAINTENANCE WORKER: section, Breast implants, Other Cardiovascular: Other HEENT: Tonsil/Adenoidectomy - Present Medications Home Medications: Ambulatory Orders Medication Instructions Recorded Confirmed Escitalopram Oxalate [Lexapro] 20 mg PO DAILY 01/08/20 10/08/21 QUEtiapine [SEROquel] 25 mg ORAL DAILY PM PRN 01/08/20 10/08/21 Albuterol Sulfate [Proair Hfa 1 - 2 puffs INH Q4H PRN #1 inhaler 06/30/20 10/08/21 Inhaler] Ibuprofen 600 mg PO DAILY 10/08/21 10/08/21 - Allergies Allergies/Adverse Reactions: Allergies Allergy/AdvReac Type Severity Reaction Status Date / Time codeine Allergy Itching Verified 10/08/21 08:39 hydrocodone Allergy Unknown Verified 10/08/21 08:39 meperidine HCl * Allergy Unknown Verified 10/08/21 08:39 [From Demerol] methocarbamol Allergy Unknown Verified 10/08/21 08:39 oxycodone [Oxycodone] Allergy Itching Verified 10/08/21 08:39 propoxyphene napsylate * Allergy Itching Verified 10/08/21 08:39 [From Darvocet-N] anti nausea Allergy Unknown Uncoded 10/18/20 15:59 - Social History Does the pt smoke?: Yes Smoking Status: Current every day smoker Does the pt drink ETOH?: Yes Does the pt have substance abuse?: No - Immunizations Immunizations are current?: Yes - POLST Patient has POLST: No PD ED PE NORMAL - Vitals Vital signs reviewed: Yes (wnl) - General General: Alert and oriented X 3. No: No acute distress (Patient is tearful, periodically has episodes in which she seems to struggle to find words however this is followed by brief intervals of completely fluent speech.) - HEENT HEENT: Atraumatic, PERRL, EOMI, Ears normal, Moist mucous membranes, Pharynx benign, Dentition benign - Neck Neck: Supple, no meningeal sign, No bony TTP, No adenopathy, Thyroid normal, No JVD, No bruit - Cardiac Cardiac: RRR, No murmur, No gallop - Respiratory Respiratory: No respiratory distress, Clear bilaterally - Abdomen Abdomen: Normal bowel sounds, Soft, Non tender - Female Female : Deferred - Rectal Rectal: Deferred - Back Back: No CVA TTP, No spinal TTP - Derm Derm: Normal color - Extremities Extremities: No deformity - Neuro Neuro: Alert and oriented X 3, cellophane worker 2-12 intact, No motor deficit, No sensory deficit, Normal speech - Psych Psych: Normal mood PD ED PE EXPANDED - Neuro Neuro: CNII-XII intact, PERRL, Cerebellar nl, Normal gait, Aphasia (Intermittent). No: Normal Sensation (Diffuse numbness to the left arm without extinction), Weakness Results - Vitals Vitals: Vital Signs - 24 hr 10/08/21 10/08/21 10/08/21 08:39 09:06 09:59 Temperature 36.7 C Heart Rate 74 71 79 Respiratory 24 19 Rate Blood Pressure 177/95 H 185/127 H 187/109 H O2 Saturation 99 100 99 10/08/21 10/08/21 10/08/21 10:24 10:30 11:46 Temperature Heart Rate 77 74 77 Respiratory 24 22 20 Rate Blood Pressure 156/87 H 161/86 H 147/70 H O2 Saturation 94 93 100 10/08/21 13:27 Temperature 37.1 C Heart Rate 74 Respiratory 22 Rate Blood Pressure 152/91 H O2 Saturation 95 Oxygen O2 Source Room air - EKG (time done) 0839 Rate: Rate (enter#) (63) Rhythm: Sinus bradycardia [place]: Normal Intervals: Normal CO QRS: Normal Ischemia: Normal ST segments Computer interpretation: Agree with computer - Labs Labs: Laboratory Tests 10/08/21 10/08/21 10/08/21 08:57 08:57 08:57 WBC 5.2 RBC 4.64 Hgb 14.8 Hct 43.9 MCV 94.6 MCH 31.9 H MCHC 33.7 RDW 13.0 Plt Count 211 MPV 9.9 Neut # (Auto) 2.8 Lymph # (Auto) 1.7 [place] # (Auto) 0.3 Eos # (Auto) 0.3 Baso # (Auto) 0.1 Absolute Nucleated RBC 0.00 Nucleated RBC % 0.0 D-Dimer Sodium 137 Potassium 4.0 Chloride 103 Carbon Dioxide 22 Anion Gap 12.0 BUN 8 Creatinine 0.6 Estimated GFR (MDRD) 105 Glucose 101 H Calcium 9.0 Total Bilirubin 0.5 AST 21 ALT 24 Alkaline Phosphatase 74 Troponin I High Sens 2.6 Total Protein 6.7 Albumin 4.0 Globulin 2.7 Albumin/Globulin Ratio 1.5 Lipase 35 Urine Color Urine Clarity Urine pH Ur Specific [place] Urine Protein Urine Glucose (UA) Urine Ketones Urine Occult Blood Urine Nitrite Urine Bilirubin Urine Urobilinogen Ur Leukocyte Esterase Ur Microscopic Review Urine Culture Comments SARS-CoV-2 (PCR) 10/08/21 10/08/21 10/08/21 09:05 10:20 13:29 WBC RBC Hgb Hct MCV MCH MCHC RDW Plt Count MPV Neut # (Auto) Lymph # (Auto) [place] # (Auto) Eos # (Auto) Baso # (Auto) Absolute Nucleated RBC Nucleated RBC % D-Dimer < 200.0 L Sodium Potassium Chloride Carbon Dioxide Anion Gap BUN Creatinine Estimated GFR (MDRD) Glucose Calcium Total Bilirubin AST ALT Alkaline Phosphatase Troponin I High Sens Total Protein Albumin Globulin Albumin/Globulin Ratio Lipase Urine Color YELLOW Urine Clarity CLEAR Urine pH 5.5 Ur Specific [place] 1.015 Urine Protein NEGATIVE Urine Glucose (UA) NEGATIVE Urine Ketones NEGATIVE Urine Occult Blood NEGATIVE Urine Nitrite NEGATIVE Urine Bilirubin NEGATIVE Urine Urobilinogen 0.2 (NORMAL) Ur Leukocyte Esterase NEGATIVE Ur Microscopic Review NOT INDICATED Urine Culture Comments NOT INDICATED SARS-CoV-2 (PCR) NOT DETECTED PD MEDICAL DECISION MAKING - ED course Complexity details: reviewed old records, reviewed results, re-evaluated patient, considered differential, d/w patient ED course: Patient is 50-year-old female presenting to the emergency department with chest pain, speech difficulties and left arm numbness. Does have a history of hypertension, asthma, smoking as well as a history of anxiety and PTSD. Afebrile, hemodynamically stable on arrival to the emergency department however patient was significantly emotionally distressed and did appear to have intermittent episodes of word finding and speech difficulties however interspersed with these episodes were periods of what appeared to be completely fluent speech. Her neurologic exam demonstrated some subjective numbness to the left upper extremity that did not fall in any particular dermatome and or peripheral nerve distribution. There was no other focal or lateralizing neurologic signs and no extinction was present on exam. Her EKG as outlined above was negative for indications of acute cardiac ischemia or dysrhythmia. Troponins negative. The remainder of her labs are within normal limits or nonactionable. I did obtain comprehensive imaging including CTA head and neck which did not demonstrate any significant carotid stenosis or occlusion. Additionally given her persistent symptoms and the atypical presen tation I did order for MRI in the emergency department which is negative for any infarct. She was monitored for several hours in the emergency department over which time all of her symptoms resolved spontaneously. Clear etiology for her symptoms is uncertain however I do believe that her anxiety was at least a contributing factor to her presentation here in the emergency department. At this time I will discharge the patient for follow-up with outpatient resources. Otherwise clear return precautions and follow-up instructions were given prior to discharge. Departure - Departure Disposition: 01 Home, Self Care Clinical Impression: Chest pain, Arm numbness left, Difficulty with speech Instructions: ED Chest Pain NonCardiac Comments: Thank you for allowing us to care for you today would be general. Today in the emergency department your evaluated for any possible life- threatening medical emergency. All of the test performed including your EKG, lab work, the CT scans of your head and the MRI performed were all very reassuring. There is no indication of heart attack, stroke or other life- threatening disease process. Please do plenty fluids and get plenty of rest. Please follow-up with your primary care doctor soon as possible. If anytime you develop any new or worsening symptoms please not hesitate to return to the emergency department. Discharge Date/Time: 10/08/21 14:10
[2021-10-08 09:06] LABS: BASOPHILS # (AUTO) 0.1 10^3/uL (0.0-0.1); BASOPHILS % (AUTO) 1.2 %; EOSINOPHILS # (AUTO) 0.3 10^3/uL (0.0-0.7); EOSINOPHILS % (AUTO) 5.6 %; HCT - HEMATOCRIT 43.9 % (37.0-47.0); HGB - HEMOGLOBIN 14.8 g/dL (12.0-16.0); LYMPHOCYTES # (AUTO) 1.7 10^3/uL (1.5-3.5); MEAN CORPUSCULAR HEMOGLOBIN 31.9 pg (27.0-31.0); MEAN CORPUSCULAR HGB CONC 33.7 g/dL (32.0-36.0); MEAN CORPUSCULAR VOLUME 94.6 fL (81.0-99.0); MEAN PLATELET VOLUME 9.9 fL (7.9-10.8); MONOCYTES # (AUTO) 0.3 10^3/uL (0.0-1.0); MONOCYTES % (AUTO) 6.4 %; NEUTROPHILS # (AUTO) 2.8 10^3/uL (1.5-6.6); NEUTROPHILS % (AUTO) 54.4 %; PLT - PLATELET COUNT 211 10^3/uL (130-450); RED BLOOD COUNT 4.64 10^6/uL (4.20-5.40); WHITE BLOOD COUNT 5.2 x10^3/uL (4.8-10.8)
--- NOTE | 2021-10-08 09:09 | XRAY Report ---
PROCEDURE: Chest 1 View X-Ray INDICATIONS: Chest Pain TECHNIQUE: One view of the chest was acquired. COMPARISON: 08/05/2021 chest x-ray FINDINGS: Surgical changes and devices: None. Lungs and pleura: No pleural effusions or pneumothorax. Lungs are clear. Mediastinum: Mediastinal contours appear normal. Heart size is normal. Bones and chest wall: No suspicious bony lesions. Overlying soft tissues appear unremarkable. IMPRESSION: No acute process. Reviewed by: Darell Walker MD on 10/08/2021 9:07 AM PDT Approved by: Darell Walker MD on 10/08/2021 9:07 AM PDT Station ID: [id number]
[2021-10-08 09:16] LABS: ALBUMIN/GLOBULIN RATIO 1.5 (1.0-2.2); BILIRUBIN,TOTAL 0.5 mg/dL (0.2-1.0); CREATININE 0.6 mg/dL (0.4-1.0); TOTAL PROTEIN 6.7 g/dL (6.7-8.2)
[2021-10-08] MEDS ORDERED: SODIUM CHLORIDE 0.9% 1,000 ML IV STA (09:32)
[2021-10-08] MEDS ORDERED: LORazepam 2 MG/ML VIAL IVP STA (09:32)
[2021-10-08] MEDS ORDERED: IOVERSOL 320 100 ML VIAL IVP ONE ×2 (09:58→10:55)
--- NOTE | 2021-10-08 10:42 | CT Report ---
PROCEDURE: ANGIO HEAD W/WO INDICATIONS: lft arm weakness, aphasia CONTRAST: IV CONTRAST: Optiray 320 ml: 80 PO CONTRAST: *NO PO CONTRAST TECHNIQUE: Precontrast 4.5 mm thick angled axial sections acquired from the foramen magnum to the vertex. Afte r the administration of intravenous contrast, 1 mm thick sections acquired through the [place] of [place] is. Postcontrast 4.5 mm thick sections then re-acquired from the foramen magnum to the vertex. 3-di mensional oqeyixh-urgpycklo-vmfvprheqh (MIP) and/or volume rendering reformats were acquired of the c entral intracranial vasculature. For radiation dose reduction, the following was used: automated ex posure control, adjustment of mA and/or kV according to patient size. COMPARISON: None FINDINGS: Image quality: Excellent. Anterior circulation: Intracranial internal carotid arteries are normal in size and flow. The flow within the paired anterior cerebral arteries is normal and symmetric. The flow within the middle cer ebral arteries is normal and symmetric. The anterior communicating artery is seen. No aneurysms are seen. Posterior circulation: Visualized portions of the vertebral arteries demonstrate normal caliber, and join to form a normal appearing basilar artery. Flow within the posterior cerebral arteries is norm al and symmetric. No aneurysms are seen. CSF spaces: Ventricles are normal in size and shape. Basal cisterns are patent. No extra-axial flu id collections. Brain: No midline shift. No intracranial bleeds or masses. Salazar-white matter interface appears int act. Skull and face: Calvarium and facial bones appear intact, without suspicious lesions. Sinuses: Visualized sinuses and mastoids are clear. IMPRESSION: Negative CT angiography of the head. Reviewed by: Darell Walker MD on 10/08/2021 10:41 AM PDT Approved by: Darell Walker MD on 10/08/2021 10:41 AM PDT Station ID: [id number]
--- NOTE | 2021-10-08 10:44 | CT Report ---
PROCEDURE: ANGIO NECK W INDICATIONS: lft arm weakness,aphasia CONTRAST: IV CONTRAST: Isovue 300 ml: 80 PO CONTRAST: *NO PO CONTRAST TECHNIQUE: After the administration of intravenous contrast, 1.5 mm axial sections acquired from the aortic arch to the [place] of [place]. Coronal 3-D maximum intensity projection (MIP) and/or volume rendering ref ormats were then performed. For radiation dose reduction, the following was used: automated exposur e control, adjustment of mA and/or kV according to patient size. COMPARISON: None. FINDINGS: Image quality: Excellent. Carotid system: The great vessels demonstrate a conventional anatomy as they arise from the aortic a rc. The origins of the common carotid arteries appear patent. The common carotid arteries demonstr ate normal calibers and courses. The bifurcation regions appear normal bilaterally. The internal ca rotid arteries demonstrate normal caliber and course. Posterior circulation: The origins of the vertebral arteries appear patent. The more superior porti ons of the vertebral arteries demonstrate normal course and caliber. They join to form a normal appe aring basilar artery. Soft tissues: Visualized neck soft tissues demonstrate no suspicious abnormalities. The thyroid is normal in size and there are no incidental findings. Bones: No suspicious bony lesions. Visualized cervical spine appears normally aligned. IMPRESSION: No acute process involving the arterial tree of the neck. The estimate of stenosis included in the report of the imaging study was calculated using the NASCET method Reviewed by: Darell Walker MD on 10/08/2021 10:43 AM PDT Approved by: Darell Walker MD on 10/08/2021 10:43 AM PDT Station ID: [id number]
[2021-10-08 13:28] VITALS: BP 152/91
--- NOTE | 2021-10-08 13:45 | MRI Report ---
PROCEDURE: Brain W/O INDICATIONS: TIA TECHNIQUE: Noncontrast axial T1 spin echo, axial T2 fast spin echo, sagittal and axial FLAIR, coronal T2 fast sp in echo, axial gradient echo, axial diffusion and ADC through the brain. COMPARISON: Head CTA examination dated 10/08/2021 FINDINGS: Image quality: Excellent. CSF Spaces: Basal cisterns are patent. No extra-axial fluid collections. Ventricles are normal in size and shape. Brain: No intracranial masses or hemorrhage. [place]/white matter interface is normal. Brainstem appe ars normal. Diffusion-weighted images demonstrate no acute ischemic insult. No chronic ischemic ins ults. Normal intravascular flow voids are present. Skull and face: Calvarium has normal marrow signal. Orbits appear normal. Sinuses: There is mild mucosal thickening within the bilateral ethmoid, sphenoid, and left maxillary sinuses. Sinuses and mastoids are otherwise clear. IMPRESSION: 1. No acute process. No recent infarct. 2. Sinus disease. Reviewed by: Darell Walker MD on 10/08/2021 1:44 PM PDT Approved by: Darell Walker MD on 10/08/2021 1:44 PM PDT Station ID: [id number]
[2021-10-08 13:51] LABS: BILIRUBIN,URINE NEGATIVE (NEGATIVE); GLUCOSE, URINE (UA) NEGATIVE (NEGATIVE); KETONES,URINE (UA) NEGATIVE (NEGATIVE); LEUKOCYTE ESTERASE, URINE NEGATIVE (NEGATIVE); NITRITE,URINE NEGATIVE (NEGATIVE); OCCULT BLOOD,URINE NEGATIVE (NEGATIVE); PH,URINE 5.5 PH (5.0-7.5); PROTEIN,URINE NEGATIVE (NEGATIVE); UROBILINOGEN,URINE 0.2 (NORMAL) E.U./dL (NORMAL)
[2021-10-08 14:00] LABS: CLARITY,URINE CLEAR (CLEAR)
== END 2021-10-08 14:10 | disposition home or self-care (01) ==
LOC: EDUNIT# → ED 08:33
DX: R07.9 Chest pain, unspecified (principal); M79.602 Pain in left arm; R47.01 Aphasia; F17.200 Nicotine dependence, unspecified, uncomplicated; Z20.822 Contact with and (suspected) exposure to COVID-19
CPT/HCPCS: 36415; 70496; 70498; 70551; 71045; 80053; 81003; 83690; 84484; 85025; 85379; 87635; 93005; 96374; 99284; J2060; Q9967; 81001; 87086

== ENCOUNTER 2022-02-25 13:24 | Outpatient (CLI) | payer OTHER | END 2022-02-25 13:25 | disposition home or self-care (01) | LOC: LAB.N 13:24 | PROVIDERS: ATTEND Surgery | DX: Z01.812 Encounter for preprocedural laboratory examination (principal); D17.22 Benign lipomatous neoplasm of skin and subcutaneous tissue of left arm; Z20.822 Contact with and (suspected) exposure to COVID-19 ==

== ENCOUNTER 2022-02-26 11:17 | Day surgery (SDC) | payer OTHER ==
[2022-02-26] MEDS ORDERED: LACTATED RINGERS 1,000 ML IV ONE ×2 (11:25→13:46)
[2022-02-26] MEDS ORDERED: LIDOCAINE MPF 2%-EPI 1:200000 20 ML VIAL ONE (11:31)
[2022-02-26] MEDS ORDERED: BUPIVACAINE 0.25% PF 10 ML VIAL ONE ×2 (11:31)
--- NOTE | 2022-02-26 12:23 | ANESTHESIA ---
Pre-Anesthesia VS, & Labs - Diagnosis Limpoma left elbow - Procedure excision lipoma,left elbow Vital Signs: Temp Pulse Resp BP Pulse Ox O2 Flow Rate 36.1 C L 89 20 149/98 H 98 0 02/26/22 11:45 02/26/22 11:45 02/26/22 11:45 02/26/22 11:45 02/26/22 11:45 02/26/22 11:45 Height: 5 ft 10 in Weight (kg): 108 kg Body Mass Index: 34.1 BMI Classification: Obese - NPO >8 hours - Is Patient ?: No Home Medications and Allergies Home Medications: Ambulatory Orders Cyclobenzaprine [Flexeril] 10 mg PO TID PRN 02/23/22 clonazePAM [KlonoPIN] 0.5 mg PO DAILY 02/23/22 hydroCHLOROthiazide [Hydrodiuril] 12.5 mg PO DAILY 02/23/22 Melatonin 10 mg PO PRN PRN 02/26/22 diphenhydrAMINE [Benadryl] 50 mg PO ONCE 02/26/22 Escitalopram Oxalate [Lexapro] 20 mg PO DAILY 01/08/20 QUEtiapine [SEROquel] 25 mg ORAL DAILY PM PRN 01/08/20 Ibuprofen 600 mg PO DAILY 10/08/21 Cyclobenzaprine [Flexeril] 10 mg PO TID PRN 02/23/22 clonazePAM [KlonoPIN] 0.5 mg PO DAILY 02/23/22 hydroCHLOROthiazide [Hydrodiuril] 12.5 mg PO DAILY 02/23/22 Melatonin 10 mg PO PRN PRN 02/26/22 diphenhydrAMINE [Benadryl] 50 mg PO ONCE 02/26/22 Allergies/Adverse Reactions: Allergies Allergy/AdvReac Type Severity Reaction Status Date / Time codeine Allergy Itching Verified 02/26/22 12:00 hydrocodone Allergy Hives Verified 02/26/22 12:00 meperidine HCl * Allergy Unknown Verified 02/26/22 12:00 [From Demerol] methocarbamol Allergy Unknown Verified 02/26/22 12:00 oxycodone [Oxycodone] Allergy Itching Verified 02/26/22 12:00 propoxyphene napsylate * Allergy Itching Verified 02/26/22 12:00 [From Darvocet-N] Anes History & Medical History - Anesthetic History Anesthesia Complications: reports: Muscle weakness Family history of Anesthesia Complications: Denies Family history of Malignant Hyperthermia: Denies - Medical History Cardiovascular: reports: Hypertension, Murmur (repaired in childhood) Pulmonary: reports: Asthma Gastrointestinal: reports: None Urinary: reports: None Neuro: reports: None Musculoskeletal: reports: Osteoarthritis, Chronic back pain Endocrine/Autoimmune: reports: None Blood Disorders: reports: None Skin: reports: None Smoking Status: Current every day smoker (1/2-1ppd) Psychosocial: reports: Depression, Alcohol, Cannabis History of Cancer?: No - Surgical History General: reports: Other Eyes Ears Nose Throat (EENT): reports: Tonsil/Adenoidectomy Cardiothoracic: reports: Other Gynecologic: reports: section, Breast implants, Other Orthopedic: reports: Other Exam General: Alert, Oriented x3, Cooperative, No acute distress Dental: Loose/Frag (left upper cracked tooth) Mouth Openin Fingerbreadth Neck Mobility: Normal Mallampati classification: II Thyromental Distance: less than 4 cm Mental/Cognitive Status: Alert/Oriented X3, Normal for patient Cognitive Status: Within normal limits Plan Anesthesia Type: General Consent for Procedure(s) Verified and Reviewed: Yes Code Status: Attempt Resuscitation ASA classification: 2-Mild systemic disease Is this case an emergency?: No
[2022-02-26] MEDS ORDERED: MIDAZOLAM 2 MG/2 ML VIAL ONE (12:28)
[2022-02-26] MEDS ORDERED: fentaNYL 100 MCG/2 ML VIAL ONE (12:28)
[2022-02-26] MEDS ORDERED: PROPOFOL 200 MG/20 ML VIAL IVP ONE (12:30)
[2022-02-26] MEDS ORDERED: LIDOCAINE 1% 50 ML MDV ONE (12:47)
--- NOTE | 2022-02-26 12:49 | HISTORY & PHYSICAL EXAMINATION ---
Chief Complaint - Chief Complaint Chief Complaint: painful lump and skin nodule left elbow area History of Present Illness - History Obtained From Records Reviewed: yes History obtained from: pt Exam Limitations: none - History of Present Illness HPI Comment/Other: symptomatic lump and skin nodule left elbow area History - Past Medical History Cardiovascular: reports: Hypertension, Murmur (repaired in childhood) Respiratory: reports: Asthma Neuro: reports: None Endocrine/Autoimmune: reports: None GI: reports: None PROBATE PARALEGAL: reports: None : reports: None HEENT: reports: Chronic vision loss Psych: reports: Depression, Anxiety, Panic attacks, Post traumatic stress disorder, Claustrophobia, Other Musculoskeletal: reports: Osteoarthritis, Chronic back pain Derm: reports: None MRSA Hx?: No - Past Surgical History General: reports: Other Ortho: reports: Other /PROBATE PARALEGAL: reports: section, Breast implants, Other Cardiovascular: reports: Other HEENT: reports: Tonsil/Adenoidectomy - POLST Patient has POLST: No Meds/Allgy - Home Medications Home Medications: Ambulatory Orders Medication Instructions Recorded Confirmed Escitalopram Oxalate [Lexapro] 20 mg PO DAILY 01/08/20 02/26/22 QUEtiapine [SEROquel] 25 mg ORAL DAILY PM PRN 01/08/20 02/26/22 Albuterol Sulfate [Proair Hfa 1 - 2 puffs INH Q4H PRN #1 inhaler 06/30/20 02/26/22 Inhaler] Ibuprofen 600 mg PO DAILY 10/08/21 02/26/22 Cyclobenzaprine [Flexeril] 10 mg PO TID PRN 02/23/22 02/26/22 clonazePAM [KlonoPIN] 0.5 mg PO DAILY 02/23/22 02/26/22 hydroCHLOROthiazide [Hydrodiuril] 12.5 mg PO DAILY 02/23/22 02/26/22 Melatonin 10 mg PO PRN PRN 02/26/22 02/26/22 diphenhydrAMINE [Benadryl] 50 mg PO ONCE 02/26/22 02/26/22 - Allergies Allergies/Adverse Reactions: Allergies Allergy/AdvReac Type Severity Reaction Status Date / Time codeine Allergy Itching Verified 02/26/22 12:00 hydrocodone Allergy Hives Verified 02/26/22 12:00 meperidine HCl * Allergy Unknown Verified 02/26/22 12:00 [From Demerol] methocarbamol Allergy Unknown Verified 02/26/22 12:00 oxycodone [Oxycodone] Allergy Itching Verified 02/26/22 12:00 propoxyphene napsylate * Allergy Itching Verified 02/26/22 12:00 [From Darvocet-N] Review of Systems - Other Findings Other Findings: 10 pt ros as above otherwise unremarkable Exam - Vital Signs Reviewed Vital Signs: Yes Vital Signs: Vital Signs x48h Temp Pulse Resp BP Pulse Ox O2 Flow Rate 02/26/22 11:45 36.1 C L 89 20 149/98 H 98 0 - Physical Exam General Appearance: positive: No acute distress, Alert Eyes Bilateral: positive: PERRL, EOMI, No scleral icterus ENT: positive: No signs of dehydration Neck: positive: No JVD, Trachea midline Respiratory: positive: Breath sounds nml Cardiovascular: positive: Regular rate & rhythm, No murmur Abdomen: positive: No distention Extremities: positive: Other (left elbow skin nodule and left medial elbow 4 cm lipoma) Neurologic/Psychiatric: positive: Oriented x3 Conclusion/Plan - Problem List (1) Lipoma of arm Conclusion/Plan: plan excision left elbow lipoma and left skin nodule. parq held and consent obtained
[2022-02-26] MEDS ORDERED: HYDROmorphone 1 MG/ML CARPUJECT ONE (13:13)
[2022-02-26] MEDS ORDERED: ONDANSETRON 4 MG/2 ML VIAL ONE (13:20)
[2022-02-26] MEDS ORDERED: fentaNYL 100 MCG/2 ML VIAL IVP PRN (13:20)
[2022-02-26] MEDS ORDERED: ATROPINE ABBOJECT 1 MG/10 ML SYRINGE IVP PRN (13:20)
[2022-02-26] MEDS ORDERED: NALOXONE 0.4 MG/ML VIAL IVP PRN (13:20)
[2022-02-26] MEDS ORDERED: MORPHINE 2 MG/ML CARPUJECT IVP PRN (13:20)
[2022-02-26] MEDS ORDERED: DEXAMETHASONE 4 MG/ML VIAL ONE (13:20)
[2022-02-26] MEDS ORDERED: HYDROmorphone 0.5 MG/0.5 ML SYRINGE IVP PRN (13:20)
[2022-02-26] MEDS ORDERED: BUPIVACAINE 0.25% PF 10 ML VIAL SUBQ ONE ×2 (13:25)
[2022-02-26] MEDS ORDERED: HYDROcod/ACETAM 5/325 MG TABLET PO PRN (13:54)
--- NOTE | 2022-02-26 13:59 | OPERATIVE REPORT ---
Operative Report - General Procedure Date: 02/26/22 Planned Procedure: excision left medial elbow subcutaneous lipoma excision left lateral elbow 3 mm skin nodule Pre-Op Diagnosis: left elbow area symptomatic skin nodule and lipoma Procedure Performed: excision 3 cm lipoma and 3 mm skin nodule left elbow area Post Op Diagnosis: same. benign - Procedure Note Primary Surgeon: lars may Anesthesia Technique: General LMA, Local Pathology: not sent Drain/Tube Type: Other (none) Indications: painful and growing lipoma and dermoid skin nodule Findings: as above Complications: none - Other Other Information/Narrative: The patient was properly identified brought to the operating room and placed in supine position. Sequential compression devices were placed. Dagoberto mask anesthesia was induced. She was prepped and draped in a sterile fashion. Antibiotics were not given. Local anesthetic was given. A 3-1/2 cm vertical incision was made directly over the lipoma. Lipoma was removed in its entirety with gentle retraction and Metzenbaum scissors. Hemostasis was achieved with cautery followed by intermediate repair. The lipoma was subcutaneous. Subcutaneous tissue was closed with an interrupted 3-0 Vicryl suture. Buried interrupted 3-0 Vicryl sutures were then placed subdermal. Skin was closed with a running 4-0 Monocryl subcuticular suture. The symptomatic skin nodule was then excised with a 5 mm horizontal incision. It was completely removed. It was a benign nodule and not sent for pathology. Skin was closed with 2 buried interrupted 4-0 Monocryl sutures. Strips and dressings were applied. He tolerated the procedure well.
[2022-02-26] MEDS ORDERED: LACTATED RINGERS 1,000 ML IV SCH (14:00)
[2022-02-26 14:17] VITALS: BP 160/74
--- NOTE | 2022-02-26 15:29 | ANESTHESIA POST OP EVALUATION ---
Anesthesia Post Eval - Post Anesthesia Eval Vitals: Last Vital Signs Temp 36.3 C L 02/26/22 14:05 Pulse 65 02/26/22 14:15 Resp 16 02/26/22 14:15 BP 160/74 H 02/26/22 14:15 Pulse Ox 94 02/26/22 14:15 O2 Flow Rate 0 02/26/22 11:45 CV Function Including HR & BP: Stable Pain Control: Satisfactory Nausea & Vomiting: Negative Mental Status: Baseline Respiratory Status: Airway Patent Hydration Status: Satisfactory Anesthesia Complications: None
== END 2022-02-26 11:18 | disposition home or self-care (01) ==
LOC: SDS 11:17
PROVIDERS: ATTEND Surgery
DX: D17.22 Benign lipomatous neoplasm of skin and subcutaneous tissue of left arm (principal); D23.62 Other benign neoplasm of skin of left upper limb, including shoulder; E66.9 Obesity, unspecified; I10 Essential (primary) hypertension; J45.909 Unspecified asthma, uncomplicated; F17.200 Nicotine dependence, unspecified, uncomplicated; Z53.29 Procedure and treatment not carried out because of patient's decision for other reasons; Z68.34 Body mass index [BMI] 34.0-34.9, adult
CPT/HCPCS: 11400; 24071; J1170; J7120

== ENCOUNTER 2022-05-05 09:47 | Outpatient (CLI) | payer OTHER | END 2022-05-05 09:48 | disposition critical access hospital (66) | LOC: EMS 09:47 | DX: R06.4 Hyperventilation (principal); R00.0 Tachycardia, unspecified; R11.0 Nausea; F41.9 Anxiety disorder, unspecified | CPT/HCPCS: A0425; A0427 ==

== ENCOUNTER 2022-05-05 10:08 | Emergency (ER) | payer OTHER ==
[2022-05-05 10:33] LABS: BASOPHILS # (AUTO) 0.1 10^3/uL (0.0-0.1); BASOPHILS % (AUTO) 0.8 %; EOSINOPHILS # (AUTO) 0.4 10^3/uL (0.0-0.7); EOSINOPHILS % (AUTO) 6.3 %; HCT - HEMATOCRIT 45.3 % (37.0-47.0); HGB - HEMOGLOBIN 14.8 g/dL (12.0-16.0); LYMPHOCYTES # (AUTO) 2.2 10^3/uL (1.5-3.5); LYMPHOCYTES % (AUTO) 35.9 %; MEAN CORPUSCULAR HEMOGLOBIN 30.9 pg (27.0-31.0); MEAN CORPUSCULAR HGB CONC 32.7 g/dL (32.0-36.0); MEAN CORPUSCULAR VOLUME 94.6 fL (81.0-99.0); MEAN PLATELET VOLUME 9.9 fL (7.9-10.8); MONOCYTES # (AUTO) 0.4 10^3/uL (0.0-1.0); MONOCYTES % (AUTO) 6.5 %; NEUTROPHILS # (AUTO) 3.1 10^3/uL (1.5-6.6); NEUTROPHILS % (AUTO) 50.2 %; PLT - PLATELET COUNT 220 10^3/uL (130-450); RED BLOOD COUNT 4.79 10^6/uL (4.20-5.40); WHITE BLOOD COUNT 6.2 x10^3/uL (4.8-10.8)
[2022-05-05 10:47] LABS: ALBUMIN 4.3 g/dL (3.2-5.5); ALBUMIN/GLOBULIN RATIO 1.5 (1.0-2.2); BILIRUBIN,TOTAL 0.5 mg/dL (0.2-1.0); CREATININE 0.8 mg/dL (0.4-1.0); TOTAL PROTEIN 7.1 g/dL (6.7-8.2)
--- NOTE | 2022-05-05 10:51 | XRAY Report ---
PROCEDURE: Chest 1 View X-Ray INDICATIONS: Chest Pain TECHNIQUE: One view of the chest was acquired. COMPARISON: None. FINDINGS: Surgical changes and devices: None. Lungs and pleura: No pleural effusions or pneumothorax. Lungs are clear. Mediastinum: Mediastinal contours appear normal. Heart size is normal. Bones and chest wall: No suspicious bony lesions. Overlying soft tissues appear unremarkable. IMPRESSION: No acute cardiopulmonary pathology. Reviewed by: Tima Boucher MD on 05/05/2022 10:50 AM [facility] Approved by: Tima Boucher MD on 05/05/2022 10:50 AM [facility] Station ID: [id number]
[2022-05-05] MEDS: ONDANSETRON 4 MG/2 ML VIAL IVP STA (11:36)
[2022-05-05] MEDS: SODIUM CHLORIDE 0.9% 1,000 ML IV STA (11:36)
[2022-05-05 12:40] LABS: B. PARAPERTUSSIS- RESP PCR PAN NOT DETECTED; B. PERTUSSIS- RESP PCR PANEL NOT DETECTED; C. PNEUMONIAE- RESP PCR PANEL NOT DETECTED; CORONAVIRUS 229E-RESP PCR NOT DETECTED; CORONAVIRUS HKU1-RESP PCR NOT DETECTED; CORONAVIRUS NL63-RESP PCR NOT DETECTED; CORONAVIRUS OC43-RESP PCR NOT DETECTED; HUMAN METAPNEUMOVIRUS NOT DETECTED; INFLUENZA A- RESP PCR PANEL NOT DETECTED; INFLUENZA B - RESP PCR PANEL NOT DETECTED; M. PNEUMONIAE- RESP PCR PANEL NOT DETECTED; PARAINFLUENZA VIRUS 1 NOT DETECTED; PARAINFLUENZA VIRUS 2 NOT DETECTED; PARAINFLUENZA VIRUS 3 NOT DETECTED; PARAINFLUENZA VIRUS 4 NOT DETECTED; RHINOVIRUS/ENTEROVIRUS NOT DETECTED; RSV- RESP PCR PANEL NOT DETECTED; SARS-CoV-2 -RESP PCR PANEL NOT DETECTED
--- NOTE | 2022-05-05 13:05 | ED Physician Documentation ---
History of Present Illness - Stated complaint Stated Complaint: HEART RACING - Chief complaint Chief Complaint: Cardiac - History obtained from History obtained from: Patient - Additonal information Additional information: Patient is a 51-year-old female with a history of hypertension presenting for evaluation of feeling panicky when she woke up this morning. She reports feeling her heart racing, feeling very nauseous, feeling lightheaded as if she was can a pass out. She felt some discomfort to the left side of her neck down her left arm. At that was at 630 this morning and has improved. Per EMS she was hyperventilating at the scene. Blood sugar was 111. Patient reports that today she has been feeling nauseous and having some loose stools. She reports feeling lower abdominal discomfort. She denies chest pain otherwise, difficulty breathing, abdominal pain. Nothing makes her symptoms better or worse. She denies drug use. She does Reports daily alcohol use with 3-4 beers. She denies ever feeling shaky or unwell after Not having alcohol. 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 : None HEENT: Chronic vision loss Psych: Depression, Anxiety, Panic attacks, Post traumatic stress disorder, Claustrophobia, Other Musculoskeletal: Osteoarthritis, Chronic back pain Derm: None - Past Surgical History Past Surgical History: Yes General: Other Ortho: Other /MASTER FIRE CONTROL TECHNICIAN: section, Breast implants, Other Cardiovascular: Other HEENT: Tonsil/Adenoidectomy - Present Medications Home Medications: Ambulatory Orders Medication Instructions Recorded Confirmed Escitalopram Oxalate [Lexapro] 20 mg PO DAILY 01/08/20 05/05/22 QUEtiapine [SEROquel] 25 mg ORAL DAILY PM PRN 01/08/20 05/05/22 Albuterol Sulfate [Proair Hfa 1 - 2 puffs INH Q4H PRN #1 inhaler 06/30/20 05/05/22 Inhaler] Ibuprofen 600 mg PO DAILY 10/08/21 05/05/22 Cyclobenzaprine [Flexeril] 10 mg PO TID PRN 02/23/22 02/26/22 clonazePAM [KlonoPIN] 0.5 mg PO DAILY 02/23/22 02/26/22 hydroCHLOROthiazide [Hydrodiuril] 12.5 mg PO DAILY 02/23/22 05/05/22 Melatonin 10 mg PO PRN PRN 02/26/22 02/26/22 Ondansetron Odt [Zofran] 4 mg TL Q6H PRN #10 tablet 05/05/22 - Allergies Allergies/Adverse Reactions: Allergies Allergy/AdvReac Type Severity Reaction Status Date / Time codeine Allergy Itching Verified 05/05/22 10:17 hydrocodone Allergy Hives Verified 05/05/22 10:17 meperidine HCl * Allergy Unknown Verified 05/05/22 10:17 [From Demerol] methocarbamol Allergy Unknown Verified 05/05/22 10:17 oxycodone [Oxycodone] Allergy Itching Verified 05/05/22 10:17 propoxyphene napsylate * Allergy Itching Verified 05/05/22 10:17 [From Darvocet-N] - Social History Does the pt smoke?: Yes Smoking Status: Current every day smoker Does the pt drink ETOH?: Yes Does the pt have substance abuse?: Yes Substance Use and Type: Marijuana - Immunizations Immunizations are current?: Yes - POLST Patient has POLST: No PD ED PE NORMAL - General General: Alert and oriented X 3, No acute distress, Well developed/nourished - HEENT HEENT: Pharynx benign - Neck Neck: Supple, no meningeal sign - Cardiac Cardiac: RRR, No murmur - Respiratory Respiratory: No respiratory distress, Clear bilaterally - Abdomen Abdomen: Non distended, Other (Mild suprapubic tenderness) - Derm Derm: Warm and dry - Extremities Extremities: No deformity - Neuro Neuro: Alert and oriented X 3, gas manager 2-12 intact, No motor deficit, No sensory deficit, Normal speech, Other (Normal gait) Results - Vitals Vitals: Vital Signs - 24 hr 05/05/22 05/05/22 05/05/22 10:17 10:44 14:00 Temperature 36.8 C Heart Rate 75 78 74 Respiratory 20 21 16 Rate Blood Pressure 152/101 H 152/92 H 133/89 H O2 Saturation 96 91 L 92 05/05/22 15:00 Temperature Heart Rate 71 Respiratory 18 Rate Blood Pressure 134/79 H O2 Saturation 99 Oxygen O2 Source Room air - EKG (time done) 1037 Rate: Rate (enter#) (79) Rhythm: NSR [place]: Normal Ischemia: No: ST elevation c/w ischemia - Labs Labs: Laboratory Tests 05/05/22 05/05/22 05/05/22 10:28 10:28 10:28 WBC 6.2 RBC 4.79 Hgb 14.8 Hct 45.3 MCV 94.6 MCH 30.9 MCHC 32.7 RDW 13.0 Plt Count 220 MPV 9.9 Neut # (Auto) 3.1 Lymph # (Auto) 2.2 [place] # (Auto) 0.4 Eos # (Auto) 0.4 Baso # (Auto) 0.1 Absolute Nucleated RBC 0.00 Nucleated RBC % 0.0 Sodium 138 Potassium 4.0 Chloride 100 L Carbon Dioxide 27 Anion Gap 11.0 BUN 10 Creatinine 0.8 Estimated GFR (MDRD) 75 L Glucose 117 H Calcium 9.0 Total Bilirubin 0.5 AST 21 ALT 18 Alkaline Phosphatase 93 Troponin I High Sens 3.2 Total Protein 7.1 Albumin 4.3 Globulin 2.8 Albumin/Globulin Ratio 1.5 Lipase 33 Urine Color Urine Clarity Urine pH Ur Specific [place] Urine Protein Urine Glucose (UA) Urine Ketones Urine Occult Blood Urine Nitrite Urine Bilirubin Urine Urobilinogen Ur Leukocyte Esterase Ur Microscopic Review Urine Culture Comments Nasal Adenovirus (PCR) Nasal B. parapertussis DNA (PCR) Nasal Coronavir 229E PCR Nasal Coronavir HKU1 PCR Nasal Coronavir NL63 PCR Nasal Coronavir OC43 PCR Nasal Enterovir/Rhinovir PCR Nasal Influenza B PCR Nasal Influenza A PCR Nasal Parainfluen 1 PCR Nasal Parainfluen 2 PCR Nasal Parainfluen 3 PCR Nasal Parainfluen 4 PCR Nasal RSV (PCR) Nasal B.pertussis DNA PCR Nasal C.pneumoniae (PCR) [place] Human Metapneumo PCR Nasal M.pneumoniae (PCR) Nasal SARS-CoV-2 (PCR) 05/05/22 05/05/22 05/05/22 11:40 13:07 13:20 WBC RBC Hgb Hct MCV MCH MCHC RDW Plt Count MPV Neut # (Auto) Lymph # (Auto) [place] # (Auto) Eos # (Auto) Baso # (Auto) Absolute Nucleated RBC Nucleated RBC % Sodium Potassium Chloride Carbon Dioxide Anion Gap BUN Creatinine Estimated GFR (MDRD) Glucose Calcium Total Bilirubin AST ALT Alkaline Phosphatase Troponin I High Sens 3.4 Total Protein Albumin Globulin Albumin/Globulin Ratio Lipase Urine Color LT. YELLOW Urine Clarity CLEAR Urine pH 6.0 Ur Specific [place] 1.010 Urine Protein NEGATIVE Urine Glucose (UA) NEGATIVE Urine Ketones NEGATIVE Urine Occult Blood NEGATIVE Urine Nitrite NEGATIVE Urine Bilirubin NEGATIVE Urine Urobilinogen 0.2 (NORMAL) Ur Leukocyte Esterase NEGATIVE Ur Microscopic Review NOT INDICATED Urine Culture Comments NOT INDICATED Nasal Adenovirus (PCR) NOT DETECTED Nasal B. parapertussis DNA (PCR) NOT DETECTED Nasal Coronavir 229E PCR NOT DETECTED Nasal Coronavir HKU1 PCR NOT DETECTED Nasal Coronavir NL63 PCR NOT DETECTED Nasal Coronavir OC43 PCR NOT DETECTED Nasal Enterovir/Rhinovir PCR NOT DETECTED Nasal Influenza B PCR NOT DETECTED Nasal Influenza A PCR NOT DETECTED Nasal Parainfluen 1 PCR NOT DETECTED Nasal Parainfluen 2 PCR NOT DETECTED Nasal Parainfluen 3 PCR NOT DETECTED Nasal Parainfluen 4 PCR NOT DETECTED Nasal RSV (PCR) NOT DETECTED Nasal B.pertussis DNA PCR NOT DETECTED Nasal C.pneumoniae (PCR) NOT DETECTED [place] Human Metapneumo PCR NOT DETECTED Nasal M.pneumoniae (PCR) NOT DETECTED Nasal SARS-CoV-2 (PCR) NOT DETECTED PD Medical Decision Making - ED course Complexity details: reviewed results, re-evaluated patient, d/w patient ED course: Patient presenting for evaluations of palpitations and left sided neck to arm pain. Her EKG is reviewed. Her high-sensitivity troponin is negative x2. She is low risk for ACS based on the heart score and her symptoms would be atypical for ACS. I doubt dissection as pain is not migratory and She feels better with antiemetics. Labs are reviewed. Patient is feeling better with IV fluids and antiemetics. Her abdominal exam remains benign. Patient counseled on need for close follow-up with PCP as well as concerning symptoms to return for. Departure - Departure Disposition: 01 Home, Self Care Clinical Impression: Palpitations, Nausea alone Condition: Stable Instructions: ED Chest Pain Atypical Unkn Cause, ED Palpitations, ED Vomiting Diarrhea Nonspecific Ad Prescriptions: Ondansetron Odt [Zofran] 4 mg TL Q6H PRN #10 tablet PRN Reason: Nausea / Vomiting Comments: Please call your primary care doctor for close follow-up. You may need further testing or evaluation to determine the cause for your symptoms this morning.Please call your primary care doctor for close follow-up. You may need further testing or evaluation to determine the cause for your symptoms this morning. Discharge Date/Time: 05/05/22 15:24
[2022-05-05] MEDS: METOCLOPRAMIDE 10 MG/2 ML VIAL IVP STA (13:20)
[2022-05-05 13:34] LABS: BILIRUBIN,URINE NEGATIVE (NEGATIVE); GLUCOSE, URINE (UA) NEGATIVE (NEGATIVE); KETONES,URINE (UA) NEGATIVE (NEGATIVE); LEUKOCYTE ESTERASE, URINE NEGATIVE (NEGATIVE); NITRITE,URINE NEGATIVE (NEGATIVE); OCCULT BLOOD,URINE NEGATIVE (NEGATIVE); PROTEIN,URINE NEGATIVE (NEGATIVE); UROBILINOGEN,URINE 0.2 (NORMAL) E.U./dL (NORMAL)
[2022-05-05 13:39] LABS: CLARITY,URINE CLEAR (CLEAR)
[2022-05-05 15:22] VITALS: BP 134/79
== END 2022-05-05 15:24 | disposition home or self-care (01) ==
LOC: EDUNIT# → ED 10:08
DX: R00.2 Palpitations (principal); R11.0 Nausea; I10 Essential (primary) hypertension; Z20.822 Contact with and (suspected) exposure to COVID-19
CPT/HCPCS: 36415; 71045; 80053; 81003; 83690; 84484; 85025; 87633; 93005; 96374; 96375; 99284; J2765; 81001; 87086

== ENCOUNTER 2022-06-19 20:32 | Outpatient (CLI) | payer OTHER | END 2022-06-19 20:33 | disposition EMS.NT | LOC: EMS 20:32 | DX: F41.0 Panic disorder [episodic paroxysmal anxiety] (principal) ==

== ENCOUNTER 2022-07-30 14:50 | Outpatient (CLI) | payer OTHER | END 2022-07-30 14:51 | disposition critical access hospital (66) | LOC: EMS 14:50 | DX: M54.9 Dorsalgia, unspecified (principal); G89.29 Other chronic pain | CPT/HCPCS: A0425; A0427 ==

== ENCOUNTER 2022-07-30 15:11 | Emergency (ER) | payer OTHER ==
[2022-07-30] MEDS ORDERED: DEXAMETHASONE 10 MG/ML VIAL IV STA (15:47)
[2022-07-30] MEDS ORDERED: KETOROLAC 30 MG/ML VIAL IVP STA (15:47)
[2022-07-30] MEDS ORDERED: HYDROmorphone 0.5 MG/0.5 ML SYRINGE IVP STA (15:47)
--- NOTE | 2022-07-30 15:50 | ED Physician Documentation ---
History of Present Illness - Stated complaint Stated Complaint: BACK PX - Chief complaint Chief Complaint: Back Pain - History obtained from History obtained from: Patient, EMS - Additonal information Additional information: Patient comes to the emergency department via EMS for chief complaint of lumbar back pain that has been going on for the last 2 days. She states she has a history of chronic low back pain and that she has been told that she is auto fusing. The patient states that she was going to sit down on the couch and turned her head and shoulder slightly to the left to see if her dog was where she was going to sit. She felt a twinge in her mid line low back and immediately began to experience pain. The patient states the pain is escalated over the last couple days to the point where she cannot even roll over in bed and it is hard to walk her dog. She has some tingling in her left leg and states that lifting her left leg makes the pain in her back worse. No weakness in her lower extremities. She states she was not able to hold her urine today because it hurt too bad to tense up and hold it, but she does not have any involuntary incontinence per se. No other trauma. No abdominal pain or dysuria. No fevers or chills. No other complaints at this time. 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 HEENT: Chronic vision loss Psych: Depression, Anxiety, Panic attacks, Post traumatic stress disorder, Claustrophobia, Other Musculoskeletal: Osteoarthritis, Chronic back pain Derm: None - Past Surgical History Past Surgical History: Yes General: Other Ortho: Other /AUTOPSY PATHOLOGIST: section, Breast implants, Other Cardiovascular: Other HEENT: Tonsil/Adenoidectomy - Present Medications Home Medications: Ambulatory Orders Medication Instructions Recorded Confirmed Escitalopram Oxalate [Lexapro] 20 mg PO DAILY 01/08/20 05/05/22 QUEtiapine [SEROquel] 25 mg ORAL DAILY PM PRN 01/08/20 05/05/22 Albuterol Sulfate [Proair Hfa 1 - 2 puffs INH Q4H PRN #1 inhaler 06/30/20 05/05/22 Inhaler] Ibuprofen 600 mg PO DAILY 10/08/21 05/05/22 Cyclobenzaprine [Flexeril] 10 mg PO TID PRN 02/23/22 02/26/22 clonazePAM [KlonoPIN] 0.5 mg PO DAILY 02/23/22 02/26/22 hydroCHLOROthiazide [Hydrodiuril] 12.5 mg PO DAILY 02/23/22 05/05/22 Melatonin 10 mg PO PRN PRN 02/26/22 02/26/22 Ondansetron Odt [Zofran] 4 mg TL Q6H PRN #10 tablet 05/05/22 predniSONE [Deltasone] 10 mg PO [id number] #42 tab 07/30/22 - Allergies Allergies/Adverse Reactions: Allergies Allergy/AdvReac Type Severity Reaction Status Date / Time codeine Allergy Itching Verified 07/30/22 15:19 hydrocodone Allergy Hives Verified 07/30/22 15:19 meperidine HCl * Allergy Unknown Verified 07/30/22 15:19 [From Demerol] methocarbamol Allergy Unknown Verified 07/30/22 15:19 oxycodone [Oxycodone] Allergy Itching Verified 07/30/22 15:19 propoxyphene napsylate * Allergy Itching Verified 07/30/22 15:19 [From Darvocet-N] - Social History Does the pt smoke?: Yes Smoking Status: Current every day smoker Does the pt drink ETOH?: Yes Does the pt have substance abuse?: Yes - Immunizations Immunizations are current?: Yes - POLST Patient has POLST: No PD ED PE NORMAL - Vitals Vital signs reviewed: Yes - General General: Alert and oriented X 3, No acute distress, Well developed/nourished - HEENT HEENT: Atraumatic, PERRL, EOMI, Moist mucous membranes - Neck Neck: Supple, no meningeal sign - Cardiac Cardiac: Strong equal pulses - Respiratory Respiratory: No respiratory distress - Abdomen Abdomen: Soft, Non tender, Non distended - Back Back: No spinal TTP, Other (Tenderness palpation, moderate, adjacent to left side of lumbar spine around the L4-5 area. No step-off) - Derm Derm: Normal color, Warm and dry, No rash - Extremities Extremities: No deformity, No tenderness to palpate, No edema, No calf tenderness / cord - Neuro Neuro: Alert and oriented X 3, No motor deficit, No sensory deficit - Psych Psych: Normal mood, Normal affect Results - Vitals Vitals: Vital Signs - 24 hr 07/30/22 15:16 Temperature 36.9 C Heart Rate 69 Respiratory 18 Rate Blood Pressure 139/106 H O2 Saturation 100 Oxygen O2 Source Room air PD Medical Decision Making - ED course Complexity details: reviewed results, re-evaluated patient, considered differential, d/w patient ED course: The patient was treated symptomatically with IV Toradol, Decadron, and Dilaudid. I did order lumbar spine x-ray series and reviewed this, as well as reviewed the radiologist interpretation. The x-ray showed chronic changes but nothing acute. The patient was feeling better after medications, and was stable for discharge home. We have discussed home management of the symptoms as well as usual indications for return. I do not find any evidence of an emergent cause or complication of the patient's back pain. Departure - Departure Disposition: 01 Home, Self Care Clinical Impression: Acute exacerbation of chronic low back pain Condition: Stable Instructions: ED Sprain Strain Lumbar Prescriptions: predniSONE [Deltasone] 10 mg PO [id number] #42 tab Comments: The x-rays of your spine shows some degenerative changes but otherwise, no acute findings. You have been treated with pain medication, as well as anti- inflammatories here in the emergency department. You have a number of medications at home that you can use as needed for your symptoms, including anti-inflammatories, muscle relaxer, and your Vicodin. You may also take a short course of steroid to see if this helps and allows you to take less of the Vicodin, since you prefer not to take this. You may take up to 2 tablets every 4-6 hours if needed, however, with regard to the Vicodin so if you are not getting good pain control at home, please consider this. Otherwise, please follow-up with your primary care physician if your symptoms are not starting to improve in the next couple of weeks to discuss whether MRI is appropriate at this time. Your prescription for the steroid has been electronically transmitted to the [facility] in [place], your pharmacy of choice on record.
--- NOTE | 2022-07-30 17:08 | XRAY Report ---
PROCEDURE: Lumbar Spine 2 View INDICATIONS: injury/pain TECHNIQUE: 3 views of the lumbar spine were acquired. COMPARISON: None. FINDINGS: Bones: 5 [id number] vertebrae are present. There is straightening of normal lumbar lordosis. M ild degenerative endplate changes are noted at L3-4 through L5-S1 levels. No vertebral body compressi on fractures. No suspicious bony lesions. Soft tissues: Overlying bowel gas pattern is normal. No suspicious soft tissue calcifications. IMPRESSION: Mild degenerative disc disease in mid to lower lumbar spine. No acute compression fractu re or significant spondylolisthesis. Reviewed by: Tima Boucher MD on 07/30/2022 5:07 PM PDT Approved by: Tima Boucher MD on 07/30/2022 5:07 PM PDT Station ID: [id number]
[2022-07-30] MEDS ORDERED: HYDROmorphone 1 MG/ML CARPUJECT IM STA (18:05)
[2022-07-30 19:48] VITALS: BP 126/84
== END 2022-07-30 19:48 | disposition home or self-care (01) ==
LOC: EDUNIT# → ED 15:11
DX: M54.50 Low back pain, unspecified (principal); G89.29 Other chronic pain; I10 Essential (primary) hypertension; F17.200 Nicotine dependence, unspecified, uncomplicated
CPT/HCPCS: 72100; 96374; 96375; 99283; 99284; J1170

== ENCOUNTER 2022-08-03 15:13 | Emergency (ER) | payer OTHER ==
--- NOTE | 2022-08-03 17:21 | ED Physician Documentation ---
History of Present Illness - Stated complaint Stated Complaint: RT WRIST SWELLING - Chief complaint Chief Complaint: General - History obtained from History obtained from: Patient - History of Present Illness Timing: How many days ago (2) Pain level max: 1 Pain level now: 1 - Additonal information Additional information: Patient states that she was seen in this emergency department recently and had an IV in the right wrist. She states that there is now swelling and redness to the IV site. She contacted her doctor who referred her here for evaluation. No fevers. No chills. Nothing makes it better or worse. Review of Systems Constitutional: denies: Fever, Chills PD PAST MEDICAL HISTORY - Past Medical History Cardiovascular: Hypertension, Murmur, Arrhythmia Respiratory: Asthma Neuro: None Endocrine/Autoimmune: None GI: GERD CCNP: None : None HEENT: Chronic vision loss Psych: Depression, Anxiety, Panic attacks, Post traumatic stress disorder, Claustrophobia, Other Musculoskeletal: Osteoarthritis, Chronic back pain Derm: None - Past Surgical History Past Surgical History: Yes General: Other Ortho: Other /CCNP: section, Breast implants, Other Cardiovascular: Other HEENT: Tonsil/Adenoidectomy - Present Medications Home Medications: Ambulatory Orders Medication Instructions Recorded Confirmed Escitalopram Oxalate [Lexapro] 20 mg PO DAILY 01/08/20 05/05/22 QUEtiapine [SEROquel] 25 mg ORAL DAILY PM PRN 01/08/20 05/05/22 Albuterol Sulfate [Proair Hfa 1 - 2 puffs INH Q4H PRN #1 inhaler 06/30/20 05/05/22 Inhaler] Ibuprofen 600 mg PO DAILY 10/08/21 05/05/22 Cyclobenzaprine [Flexeril] 10 mg PO TID PRN 02/23/22 02/26/22 clonazePAM [KlonoPIN] 0.5 mg PO DAILY 02/23/22 02/26/22 hydroCHLOROthiazide [Hydrodiuril] 12.5 mg PO DAILY 02/23/22 05/05/22 Melatonin 10 mg PO PRN PRN 02/26/22 02/26/22 Ondansetron Odt [Zofran] 4 mg TL Q6H PRN #10 tablet 05/05/22 predniSONE [Deltasone] 10 mg PO [id number] #42 tab 07/30/22 - Allergies Allergies/Adverse Reactions: Allergies Allergy/AdvReac Type Severity Reaction Status Date / Time acetaminophen [From Percocet] Allergy Emesis Verified 08/03/22 15:20 codeine Allergy Itching Verified 08/03/22 15:20 hydrocodone Allergy Hives Verified 08/03/22 15:20 meperidine HCl * Allergy Unknown Verified 08/03/22 15:20 [From Demerol] methocarbamol Allergy Unknown Verified 08/03/22 15:20 oxycodone [Oxycodone] Allergy Itching Verified 08/03/22 15:20 propoxyphene napsylate * Allergy Itching Verified 08/03/22 15:20 [From Darvocet-N] - Social History Does the pt smoke?: Yes Smoking Status: Current every day smoker Does the pt drink ETOH?: Yes Does the pt have substance abuse?: Yes - Immunizations Immunizations are current?: Yes - POLST Patient has POLST: No PD ED PE NORMAL - Vitals Vital signs reviewed: Yes - General General: Alert and oriented X 3, No acute distress - Derm Derm: Warm and dry - Extremities Extremities: Other (Patient with a palpable superficial thrombus in the right wrist at the IV site. Minimal erythema.) - Neuro Neuro: Alert and oriented X 3 Results - Vitals Vitals: Vital Signs - 24 hr 08/03/22 08/03/22 15:16 17:34 Temperature 36.1 C L Heart Rate 75 86 Respiratory 18 16 Rate Blood Pressure 160/98 H 155/108 H O2 Saturation 99 99 Oxygen O2 Source Room air PD Medical Decision Making - ED course Complexity details: considered differential, d/w patient ED course: Patient with a superficial thrombophlebitis of the right wrist. This was confirmed on bedside ultrasound which reveals a clot in the vein. We will have her apply warm compresses and use anti-inflammatories for home. No indication for antibiotics. No evidence of infection. Patient counseled regarding signs and symptoms for which I believe and urgent re-evaluation would be necessary. P atient with good understanding of and agreement to plan and is comfortable going home at this time This document was made in part using voice recognition software. While efforts are made to proofread this document, sound alike and grammatical errors may occur. Departure - Departure Disposition: 01 Home, Self Care Clinical Impression: Superficial thrombophlebitis Qualifiers: Superficial thrombophlebitis-Involved body area: upper extremity Laterality: le ft Qualified Code(s): I80.8 - Phlebitis and thrombophlebitis of other sites Condition: Good Instructions: ED Phlebitis Superficial Follow-Up: your,doctor in 1 week [Other] Comments: Please follow-up with your doctor for further care. I would use nonsteroidal anti-inflammatory medication such as Motrin or Aleve. Warm compresses will also help. This should resolve over the next few days. Please return if you worsen. You have a superficial thrombophlebitis or blood clot from the IV. Discharge Date/Time: 08/03/22 17:35
[2022-08-03 17:35] VITALS: BP 155/108
== END 2022-08-03 17:35 | disposition home or self-care (01) ==
LOC: ED 15:13
DX: I80.8 Phlebitis and thrombophlebitis of other sites (principal); F17.200 Nicotine dependence, unspecified, uncomplicated
CPT/HCPCS: 99281; 99283

== ENCOUNTER 2022-09-21 00:36 | Outpatient (CLI) | payer OTHER | END 2022-09-21 00:37 | disposition critical access hospital (66) | LOC: EMS 00:36 | DX: R51.9 Headache, unspecified (principal); H53.8 Other visual disturbances; J02.9 Acute pharyngitis, unspecified | CPT/HCPCS: A0425; A0429 ==

== ENCOUNTER 2022-09-21 00:51 | Emergency (ER) | payer OTHER ==
[2022-09-21] MEDS ORDERED: ACETAMINOPHEN 500 MG TABLET PO ONE (00:52)
[2022-09-21] MEDS ORDERED: AMOX/CLAV 875 MG/125 MG TABLET PO ONE (00:52)
[2022-09-21] MEDS ORDERED: DEXAMETHASONE 10 MG/ML VIAL IVP ONE (00:52)
[2022-09-21 03:58] LABS: RAPID STREP SCREEN Negative (Negative)
[2022-09-21 04:29] VITALS: BP 137/101
--- NOTE | 2022-09-21 16:18 | XRAY Report ---
PROCEDURE: CHEST 1 View INDICATIONS: cough TECHNIQUE: One view of the chest was acquired. COMPARISON: Chest x-ray 05/05/2022 FINDINGS: FINDINGS: Surgical changes and devices: None. Lungs and pleura: No pleural effusions or pneumothorax. No acute consolidation. Mediastinum: Mediastinal contours appear normal. Heart size is normal. Bones and chest wall: No suspicious bony lesions. Overlying soft tissues appear unremarkable. IMPRESSION: No acute cardiopulmonary disease. Reviewed by: Lamin Louis MD on 09/21/2022 1:33 AM PDT Approved by: Lamin Louis MD on 09/21/2022 1:33 AM PDT Station ID: [id number]
== END 2022-09-21 01:55 | disposition home or self-care (01) ==
LOC: EDUNIT# → ED 00:51
DX: H66.91 Otitis media, unspecified, right ear (principal); J02.9 Acute pharyngitis, unspecified
CPT/HCPCS: 71045; 87070; 87430; 99283; 99284; A9270